=== PATIENT | female | born 1965 | race Caucasian/White ===

== ENCOUNTER → 2018-03-26 10:43 | Outpatient (REF) | payer BC, SELFPAY ==
[2018-03-26 13:19] LABS: Abs Immature Grans 0.01 k/cumm (0.0-0.09); Absolute Basophil Count 0.02 k/cumm (0.0-0.2); Absolute Lymphocyte Count 0.53 k/cumm (1.2-3.4); Absolute Monocyte Count 0.25 k/cumm (0.11-0.7); Absolute Neutrophil Count 1.77 k/cumm (1.2-6.7); Basophils % 0.7; Eosinophils % 3.7; HCT 37.5 % (36.0-46.0); HGB 12.7 g/dL (12.0-15.5); Immature Grans % 0.4; Lymphocytes % 19.8; Mean Corp. HGB Concentration 33.9 g/dL (32.0-36.0); Mean Corpuscular Hemoglobin 28.2 pg (27.0-33.0); Mean Corpuscular Volume 83.3 fL (80-95); Mean Platelet Volume 10.8 fL (8.0-11.0); Monocytes % 9.3; Neutrophils % 66.1; RBC Distribution Width 13.8 % (11.7-14.6); White Blood Cell Count 2.68 k/cumm (4.4-10.8)
[2018-03-26 13:48] LABS: Anion Gap 9.4 mmol/L (3-11); BUN 8 mg/dL (7-18); CO2 27.6 mmol/L (21.0-32.0); Calcium 8.8 mg/dL (8.5-10.1); Chloride 100 mmol/L (98-107); Glucose 306 mg/dL (70-100); Magnesium 1.5 mg/dL (1.8-2.4); Potassium 3.8 mmol/L (3.5-5.1); Sodium 137 mmol/L (136-145)
[2018-03-26 14:05] LABS: Diff Comment PLT Morph Reviewed
[2018-03-26 14:07] LABS: Platelet Count 71 x1000/uL (130-400)
== END ==
LOC: NCHCN 10:43
PROVIDERS: Visit Provider Nurse Practitioner Family
DX: D53.9 Nutritional anemia, unspecified (principal); D69.6 Thrombocytopenia, unspecified; E66.9 Obesity, unspecified; E83.42 Hypomagnesemia
CPT/HCPCS: 80048; 85027; 83735; 85007

== ENCOUNTER 2018-04-30 17:45 | Outpatient (REF) | payer BC, SELFPAY ==
[2018-04-30 21:34] LABS: Magnesium 1.3 mg/dL (1.8-2.4)
== END 2018-04-30 18:05 ==
LOC: NCHCN 17:45
PROVIDERS: Visit Provider Nurse Practitioner Family
DX: E83.42 Hypomagnesemia (principal); R60.0 Localized edema; M54.5 Low back pain; D69.6 Thrombocytopenia, unspecified; E11.319 Type 2 diabetes mellitus with unspecified diabetic retinopathy without macular edema; I25.10 Atherosclerotic heart disease of native coronary artery without angina pectoris; I10 Essential (primary) hypertension
CPT/HCPCS: 83735

== ENCOUNTER 2018-08-17 10:22 | Outpatient (REF) | payer BC, SELFPAY | END 2018-08-17 10:42 | LOC: NCHCN 10:22 | PROVIDERS: Visit Provider Nurse Practitioner Family | DX: E83.42 Hypomagnesemia (principal); I10 Essential (primary) hypertension; E78.5 Hyperlipidemia, unspecified; E11.319 Type 2 diabetes mellitus with unspecified diabetic retinopathy without macular edema | CPT/HCPCS: 83735 ==

== ENCOUNTER 2018-09-17 21:40 | Outpatient (REF) | payer BC, SELFPAY ==
[2018-09-17 22:14] LABS: CREATININE 0.67 mg/dL (0.55-1.02)
== END 2018-09-17 22:00 ==
LOC: NCHCN 21:40
PROVIDERS: Visit Provider Nurse Practitioner Family
DX: R10.2 Pelvic and perineal pain (principal); E11.319 Type 2 diabetes mellitus with unspecified diabetic retinopathy without macular edema; E66.9 Obesity, unspecified
CPT/HCPCS: 82565

== ENCOUNTER 2018-10-22 00:53 | Outpatient (CLI) | payer BC, SELFPAY ==
--- NOTE | 2018-10-22 16:25 | DI.MAMMO_ITS ---
SYMPTOM/DIAGNOSIS: SCREENING, Z12.31 MAMMOGRAMS: Mammograms were interpreted according to the usual protocol including computer analysis with CAD system, tomosynthesis and C view imaging. Comparison is made with exams from 2009 and 2013. The breasts are composed of fatty density tissue. No suspicious masses or suspicious microcalcifications are seen. There has been no significant change. IMPRESSION: Category 1, negative mammogram. Yearly screening mammography is recommended. [facility] ASSESSMENT OF FINDINGS: Negative. Category 1. Patient will receive a letter notifying them of these results. BI-RAD category A. The breasts are almost entirely fatty.
== END 2018-10-22 01:13 ==
PROVIDERS: PCP Nurse Practitioner Family; Visit Provider Nurse Practitioner Family
DX: Z12.31 Encounter for screening mammogram for malignant neoplasm of breast (principal)
CPT/HCPCS: 77063; 77067

== ENCOUNTER 2018-11-13 16:46 | Outpatient (REF) | payer BC, SELFPAY ==
[2018-11-13 22:01] LABS: Magnesium 1.7 mg/dL (1.8-2.4)
== END 2018-11-13 17:06 ==
LOC: NCHCN 16:46
PROVIDERS: PCP Nurse Practitioner Family; Visit Provider Nurse Practitioner Family
DX: E83.42 Hypomagnesemia (principal); K74.60 Unspecified cirrhosis of liver; E11.319 Type 2 diabetes mellitus with unspecified diabetic retinopathy without macular edema; E78.5 Hyperlipidemia, unspecified; I10 Essential (primary) hypertension
CPT/HCPCS: 83735

== ENCOUNTER 2019-02-05 17:17 | Outpatient (REF) | payer BC, SELFPAY ==
[2019-02-05 21:40] LABS: Absolute Basophil Count 0.02 k/cumm (0.0-0.2); Absolute Eosinophil Count 0.16 k/cumm (0.0-0.7); Absolute Lymphocyte Count 0.56 k/cumm (1.2-3.4); Absolute Monocyte Count 0.34 k/cumm (0.11-0.7); Absolute Neutrophil Count 2.04 k/cumm (1.2-6.7); Basophils % 0.6; Eosinophils % 5.1; HGB 11.3 g/dL (12.0-15.5); Lymphocytes % 17.9; Mean Corp. HGB Concentration 32.3 g/dL (32.0-36.0); Mean Corpuscular Hemoglobin 29.8 pg (27.0-33.0); Mean Corpuscular Volume 92.3 fL (80-95); Mean Platelet Volume 10.6 fL (8.0-11.0); Monocytes % 10.9; Neutrophils % 65.5; RBC 3.79 m/cumm (4.00-5.20); RBC Distribution Width 13.6 % (11.7-14.6); White Blood Cell Count 3.12 k/cumm (4.4-10.8)
[2019-02-05 21:49] LABS: Iron 41 ug/dL (50-175); Total Iron Binding Capacity 351 ug/dL (250-450); Transferrin Sat 12 % (15-50)
[2019-02-05 21:56] LABS: ALT 55 U/L (12-78); AST 35 U/L (15-37); Albumin 3.8 g/dL (3.4-5.0); Alkaline Phosphatase 63 U/L (46-116); Anion Gap 12.6 mmol/L (3-11); BUN 12 mg/dL (7-18); Bilirubin, Total 0.4 mg/dL (0.2-1.0); CO2 24.4 mmol/L (21.0-32.0); CREATININE 0.57 mg/dL (0.55-1.02); Calcium 9.7 mg/dL (8.5-10.1); Chloride 107 mmol/L (98-107); Glucose 145 mg/dL (70-100); Magnesium 1.7 mg/dL (1.8-2.4); Potassium 3.8 mmol/L (3.5-5.1); Sodium 144 mmol/L (136-145)
[2019-02-05 22:44] LABS: Ferritin 38 ng/mL (8-388)
[2019-02-05 22:45] LABS: Platelet Count 86 x1000/uL (130-400)
== END 2019-02-05 17:37 ==
LOC: NCHCN 17:17
PROVIDERS: PCP Nurse Practitioner Family; Visit Provider Nurse Practitioner Family
DX: E83.42 Hypomagnesemia (principal); K74.60 Unspecified cirrhosis of liver; E11.319 Type 2 diabetes mellitus with unspecified diabetic retinopathy without macular edema; I25.10 Atherosclerotic heart disease of native coronary artery without angina pectoris; E66.9 Obesity, unspecified
CPT/HCPCS: 80053; 82728; 83540; 83550; 83735; 85025

== ENCOUNTER 2019-02-26 15:34 | Outpatient (REF) | payer BC, SELFPAY | END 2019-02-26 15:54 | LOC: NCHCN 15:34 | PROVIDERS: PCP Nurse Practitioner Family; Visit Provider Nurse Practitioner Family | DX: Z48.89 Encounter for other specified surgical aftercare; T81.40XA Infection following a procedure, unspecified, initial encounter | CPT/HCPCS: 87077; 87070; 87186; 87205 ==

== ENCOUNTER 2019-08-19 15:26 | Outpatient (REF) | payer BC, SELFPAY ==
[2019-08-19 22:38] LABS: Abs Immature Grans 0.01 k/cumm (0.0-0.09); Absolute Basophil Count 0.02 k/cumm (0.0-0.2); Absolute Eosinophil Count 0.15 k/cumm (0.0-0.7); Absolute Lymphocyte Count 0.59 k/cumm (1.2-3.4); Absolute Neutrophil Count 2.45 k/cumm (1.2-6.7); Basophils % 0.6; Eosinophils % 4.1; HCT 37.8 % (36.0-46.0); Immature Grans % 0.3; Lymphocytes % 16.3; Mean Corp. HGB Concentration 34.4 g/dL (32.0-36.0); Mean Corpuscular Hemoglobin 30.1 pg (27.0-33.0); Mean Corpuscular Volume 87.5 fL (80-95); Mean Platelet Volume 10.8 fL (8.0-11.0); Neutrophils % 67.7; RBC 4.32 m/cumm (4.00-5.20); RBC Distribution Width 13.6 % (11.7-14.6); White Blood Cell Count 3.62 k/cumm (4.4-10.8)
[2019-08-19 22:51] LABS: Iron 107 ug/dL (50-170); Total Iron Binding Capacity 296 ug/dL (250-450); Transferrin Sat 36 % (15-50)
[2019-08-19 22:56] LABS: ALT 71 U/L (14-59); AST 36 U/L (15-37); Albumin 3.7 g/dL (3.4-5.0); Alkaline Phosphatase 66 U/L (46-116); Anion Gap 12.3 mmol/L (3-11); BUN 13 mg/dL (7-18); Bilirubin, Total 0.6 mg/dL (0.2-1.0); CO2 25.7 mmol/L (21.0-32.0); CREATININE 0.66 mg/dL (0.55-1.02); Calcium 9.5 mg/dL (8.5-10.1); Chloride 107 mmol/L (98-107); Glucose 170 mg/dL (74-106); Magnesium 1.6 mg/dL (1.8-2.4); Potassium 3.9 mmol/L (3.5-5.1); Sodium 145 mmol/L (136-145); Total Protein 7.1 g/dL (6.4-8.2)
[2019-08-19 23:10] LABS: Platelet Count 79 x1000/uL (130-400)
== END 2019-08-19 15:46 ==
LOC: NCHCN 15:26
PROVIDERS: PCP Nurse Practitioner Family; Visit Provider Nurse Practitioner Family
DX: E83.42 Hypomagnesemia (principal); D69.6 Thrombocytopenia, unspecified; D53.9 Nutritional anemia, unspecified; K74.60 Unspecified cirrhosis of liver; E11.319 Type 2 diabetes mellitus with unspecified diabetic retinopathy without macular edema; E78.5 Hyperlipidemia, unspecified; I25.10 Atherosclerotic heart disease of native coronary artery without angina pectoris; I10 Essential (primary) hypertension
CPT/HCPCS: 80053; 83540; 83550; 83735; 85025

== ENCOUNTER 2019-10-16 01:40 | Outpatient (CLI) | payer BC, SELFPAY ==
--- NOTE | 2019-10-16 | DI.US_ITS ---
EXAM: US ABDOMEN CLINICAL HISTORY: CIRRHOSIS, K74.60,THROMBOCYTOPENIA, D69.6,ANEMIA,D53.9 TECHNIQUE: Ultrasound performed using standard protocol. COMPARISON: ABD PELVIS WITH CONTRAST from 02/17/2018 FINDINGS: The liver is enlarged and shows a nodular, coarse echotexture. No focal liver lesions are seen. A s mall amount of fluid is noted around the upper portion of the liver. Stones are noted in the gallbla dder. There is no gallbladder wall thickening or biliary dilatation. The patient was tender while s ahsan over the gallbladder. The spleen is enlarged, measuring 16 cm in length. The kidneys are un remarkable. The pancreas and aorta were not seen. IMPRESSION: Cirrhotic appearing liver. Small amount of ascites. Splenomegaly. Cholelithiasis. DATA REPOSITORY:
== END 2019-10-16 02:00 ==
PROVIDERS: PCP Nurse Practitioner Family; Visit Provider Nurse Practitioner Family
DX: K74.60 Unspecified cirrhosis of liver (principal); D69.6 Thrombocytopenia, unspecified; D53.9 Nutritional anemia, unspecified; R16.1 Splenomegaly, not elsewhere classified; K80.20 Calculus of gallbladder without cholecystitis without obstruction; R18.8 Other ascites
CPT/HCPCS: 76700

== ENCOUNTER 2020-01-03 12:46 | Outpatient (REF) | payer BC, SELFPAY ==
[2020-01-03 22:12] LABS: ALT 57 U/L (14-59); AST 34 U/L (15-37); Albumin 3.9 g/dL (3.4-5.0); Alkaline Phosphatase 72 U/L (46-116); Anion Gap 10.8 mmol/L (3-11); BUN 15 mg/dL (7-18); Bilirubin, Total 0.8 mg/dL (0.2-1.0); CO2 26.2 mmol/L (21.0-32.0); CREATININE 0.77 mg/dL (0.55-1.02); Calcium 9.5 mg/dL (8.5-10.1); Chloride 103 mmol/L (98-107); Glucose 236 mg/dL (74-106); Magnesium 1.8 mg/dL (1.8-2.4); Potassium 3.9 mmol/L (3.5-5.1); Sodium 140 mmol/L (136-145); Total Protein 7.2 g/dL (6.4-8.2)
[2020-01-03 22:18] LABS: Vitamin B12 > 2000 pg/mL (193-986)
== END 2020-01-03 13:06 ==
LOC: NCHCN 12:46
PROVIDERS: PCP Nurse Practitioner Family; Visit Provider Nurse Practitioner Family
DX: Z00.00 Encounter for general adult medical examination without abnormal findings (principal); E83.42 Hypomagnesemia; E11.39 Type 2 diabetes mellitus with other diabetic ophthalmic complication; I10 Essential (primary) hypertension
CPT/HCPCS: 80053; 82607; 83735

== ENCOUNTER 2020-09-17 20:42 | Outpatient (REF) | payer BC, SELFPAY ==
[2020-09-17 20:43] LABS: Abs Immature Grans 0.01 10^3/uL (0.0-0.06); Absolute Basophil Count 0.05 10^3/uL (0.0-0.2); Absolute Eosinophil Count 0.21 10^3/uL (0.0-0.7); Absolute Lymphocyte Count 0.72 10^3/uL (1.2-3.4); Absolute Monocyte Count 0.47 10^3/uL (0.1-0.8); Absolute Neutrophil Count 2.66 10^3/uL (1.2-6.7); Basophils % 1.2; Eosinophils % 5.1; HCT 36.4 % (36.0-46.0); HGB 12.2 g/dL (11.2-15.7); Immature Grans % 0.2; Lymphocytes % 17.5; MCH 29.7 pg (27.0-33.0); MCHC 33.5 % (32.0-36.0); MCV 88.6 fL (80-95); MPV 10.1 fL (8.0-11.0); Monocytes % 11.4; Neutrophils % 64.6; Nucleated RBC 0 %; RBC 4.11 10^6/uL (3.93-5.22); RDW 13.8 % (11.7-14.6); RDW-SD 44.6 fL; WBC 4.12 10^3/uL (4.4-10.8)
[2020-09-17 20:52] LABS: ALT 54 U/L (14-59); AST 28 U/L (15-37); Albumin 3.8 g/dL (3.4-5.0); Alkaline Phosphatase 59 U/L (46-116); Anion Gap 10.2 mmol/L (3-11); BUN 17 mg/dL (7-18); Bilirubin, Total 0.6 mg/dL (0.2-1.0); CO2 24.8 mmol/L (21.0-32.0); CREATININE 0.8 mg/dL (0.55-1.02); Calcium 9.3 mg/dL (8.5-10.1); Chloride 102 mmol/L (98-107); Glucose 259 mg/dL (74-106); Iron 79 ug/dL (50-170); Magnesium 1.8 mg/dL (1.8-2.4); Potassium 3.9 mmol/L (3.5-5.1); Sodium 137 mmol/L (136-145); Total Iron Binding Capacity 360 ug/dL (250-450); Transferrin Sat 22 % (15-50)
[2020-09-17 20:54] LABS: Platelet Count 84 10^3/uL (130-400)
[2020-09-17 20:55] LABS: Diff Comment PLT Morph Reviewed
== END 2020-09-17 21:02 ==
LOC: NCHCN 20:42
PROVIDERS: PCP Nurse Practitioner Family; Visit Provider Nurse Practitioner Family
DX: E83.42 Hypomagnesemia (principal); R60.0 Localized edema; E11.319 Type 2 diabetes mellitus with unspecified diabetic retinopathy without macular edema; K74.60 Unspecified cirrhosis of liver; D53.9 Nutritional anemia, unspecified; G47.00 Insomnia, unspecified; D69.6 Thrombocytopenia, unspecified; M54.5 Low back pain
CPT/HCPCS: 80053; 83540; 83550; 83735; 85025

== ENCOUNTER 2021-07-27 19:03 | Outpatient (REF) | payer BC, SELFPAY ==
[2021-07-27 21:38] LABS: Abs Immature Grans 0.01 10^3/uL (0.0-0.06); Absolute Basophil Count 0.03 10^3/uL (0.0-0.2); Absolute Eosinophil Count 0.17 10^3/uL (0.0-0.7); Absolute Lymphocyte Count 0.78 10^3/uL (1.2-3.4); Absolute Monocyte Count 0.46 10^3/uL (0.1-0.8); Absolute Neutrophil Count 2.32 10^3/uL (1.2-6.7); Basophils % 0.8; Eosinophils % 4.5; HGB 12.1 g/dL (11.2-15.7); Immature Grans % 0.3; Lymphocytes % 20.7; MCH 28.9 pg (27.0-33.0); MCHC 32.7 % (32.0-36.0); MCV 88.5 fL (80-95); Monocytes % 12.2; Neutrophils % 61.5; Nucleated RBC 0 %; RBC 4.18 10^6/uL (3.93-5.22); WBC 3.77 10^3/uL (4.4-10.8)
[2021-07-27 21:47] LABS: Iron 58 ug/dL (50-170); Total Iron Binding Capacity 365 ug/dL (250-450); Transferrin Sat 16 % (15-50)
[2021-07-27 22:10] LABS: Platelet Count 79 10^3/uL (130-400)
[2021-07-27 22:22] LABS: ALT 52 U/L (14-59); AST 32 U/L (15-37); Albumin 3.9 g/dL (3.4-5.0); Alkaline Phosphatase 54 U/L (46-116); Anion Gap 7.1 mmol/L (3-11); BUN 21 mg/dL (7-18); Bilirubin, Total 0.6 mg/dL (0.2-1.0); CO2 29.9 mmol/L (21.0-32.0); CREATININE 0.7 mg/dL (0.55-1.02); Calcium 9.8 mg/dL (8.5-10.1); Chloride 105 mmol/L (98-107); Ferritin 45 ng/mL (8-252); Glucose 139 mg/dL (74-106); Magnesium 1.9 mg/dL (1.8-2.4); Potassium 4.5 mmol/L (3.5-5.1); Sodium 142 mmol/L (136-145); Total Protein 7.3 g/dL (6.4-8.2); Vitamin B12 1917 pg/mL (193-986)
[2021-07-29 01:43] LABS: Vitamin D 25 Total 44.2 ng/mL (30-100)
== END 2021-07-27 19:04 | disposition home or self-care (01) ==
LOC: NCHCN 19:03
PROVIDERS: PCP Nurse Practitioner Family; Visit Provider Nurse Practitioner Family
DX: D69.6 Thrombocytopenia, unspecified (principal); G47.00 Insomnia, unspecified; E11.319 Type 2 diabetes mellitus with unspecified diabetic retinopathy without macular edema; K74.60 Unspecified cirrhosis of liver; D53.9 Nutritional anemia, unspecified; I10 Essential (primary) hypertension
CPT/HCPCS: 80053; 82306; 82607; 82728; 83540; 83550; 83735; 85025

== ENCOUNTER 2021-09-03 02:47 | Outpatient (CLI) | payer BC, SELFPAY ==
--- NOTE | 2021-09-03 15:58 | DI.MAMMO_ITS ---
Exam(s) MAMMO SCREENING EXAM: MAMMO SCREENING CLINICAL HISTORY: SCREENING, Z12.39. TECHNIQUE: Bilateral full field digital CC and MLO mammographic images were obtained with 3D tomosyn thesis and utilizing computer aided detection (CAD). COMPARISON: Prior mammograms dating back to 2013, the most recent being October 2018. FINDINGS: There are no new spiculated masses nor malignant appearing microcalcification groups. There is no significant architectural distortion nor skin thickening-retraction. IMPRESSION: No radiographic evidence of malignancy. BI-RADS Category 1 - Negative Breast Density - Category B - Scattered areas of fibroglandular density Breast density Category C or D implies that the patient has dense breast tissue. Dense breast tissue can make it harder to find cancer on a mammogram. Dense breast tissue is also associated with an incr eased risk of breast cancer. This information about the result of the mammogram report was provided to the patient to raise their awareness. Use this report when you speak with the patient about their risks for breast cancer, which includes their family history. At that time, you may recommend additional screening tests (Ultrasoun d or MRI) as these tests may add significant information. A negative radiographic report should not delay biopsy if a dominant or clinically suspicious mass is present. Up to ten percent of cancers are not identified on mammography. A negative report may reinforce clinical impression. Adenosis and dense breasts may obscure an underlying neoplasm. False positive reports average 6 to 10%. Patient will receive a letter notifying them of these results.
== END 2021-09-03 03:07 ==
PROVIDERS: PCP Nurse Practitioner Family; Visit Provider Nurse Practitioner Family
DX: Z12.31 Encounter for screening mammogram for malignant neoplasm of breast (principal)
CPT/HCPCS: 77063; 77067

== ENCOUNTER 2022-03-22 15:07 | Outpatient (REF) | payer BC, SELFPAY ==
[2022-03-22 15:03] LABS: HCT 35.2 % (36.0-46.0); HGB 11.5 g/dL (11.2-15.7); MCH 28.9 pg (27.0-33.0); MCHC 32.7 % (32.0-36.0); MCV 88 fL (80-95); MPV 10.7 fL (8.0-11.0); Platelet Count 70 10^3/uL (130-400); RBC 3.98 10^6/uL (3.93-5.22); RDW 13.9 % (11.7-14.6); RDW-SD 45.2 fL; WBC 3.36 10^3/uL (4.4-10.8)
[2022-03-22 15:06] LABS: Iron 55 ug/dL (50-170); Total Iron Binding Capacity 385 ug/dL (250-450); Transferrin Sat 14 % (15-50)
[2022-03-22 15:08] LABS: Calculated LDL 72 mg/dL (<100); Cholesterol 138 mg/dL (<200); HDL Cholesterol 47 mg/dL (40-60); Triglyceride 95 mg/dL (<150)
== END 2022-03-22 15:08 | disposition home or self-care (01) ==
LOC: NCHCN 15:07
PROVIDERS: PCP Nurse Practitioner Family; Visit Provider Nurse Practitioner Family
DX: K74.60 Unspecified cirrhosis of liver (principal); E78.5 Hyperlipidemia, unspecified
CPT/HCPCS: 80061; 85027; 83540; 83550

== ENCOUNTER → 2022-03-31 00:16 | Outpatient (CLI) | payer BC, SELFPAY ==
--- NOTE | 2022-03-31 08:00 | ETT_ITS ---
APPROVED REPORT Exam: Exercise Treadmill Patient Location: Out-Patient Room/Bed: Stress Nurse: Lashaun Toro RN Ordering Provider:SHAJI SALEH, Contact Number: BMI: 36.63 Baseline Rhythm: Sinus Rhythm Indications: Chest pain. Medical History Medical History: DM II with retinopathy. CAD. HLD. HTN.Obesity. Heart murmur. Former smoker. Hypomagn esemia. Anemia. Cirrhosis. Cardiac Medications: Lisinopril. Atorvastatin. Nadolol. Metformin. Glargine insulin. Aspirin. Sitagli ptin. Magnesium. Nitro SL. Allergies: No known drug allergies Cardiac Risk Factors: Family hx. CVD. HTN. Diabetes. Former smoker. HLD. Obesity. Previous Cardiac Procedures: Cardiac stents (2 stents in 2005) (2 stents in 2007) Pretest Chest Pain Characteristics: None. Exercise History: Sedentary Physical Disabilities: None Lung Sounds: Clear to auscultation Heart Sounds: Murmur, Regular Stress Test Details Test: Exercise stress testing was performed using a Kevin protocol. Rest Stress HR Resting HR Supine: 72 bpm Max Heart Rate (APMHR): 166 bpm Resting HR Standin bpm Target HR (85% APMHR): 141 bpm Max HR Achieved: 143 bpm % of APMHR: 86 Recovery HR: 78 bpm HR response to stress: Normal HR response to stress BP Resting BP Supine: 104/52 mmHg Resting BP Standin/52 mmHg Max BP: 170/54 mmHg Recovery BP: 138/58 mmHg BP response to stress: Normal blood pressure response to stress. ECG Resting ECG: Sinus Rhythm Ectopy: None Stress ECG: Sinus Tachycardia ST Change: No significant ST segment changes noted Arrhythmia: VPC's Recovery ECG: Sinus Rhythm Lead(s): II, III, aVF, V3,V4,V5,V6 Recovery ST Deviation: Recovery stage 2 mm Recovery Arrhythmia: None Comment: Downsloping ST depression 1 minute post exercise, returned to baseline by 6 minutes recovery time Clinical Reason for Termination: Dyspnea Stress Symptoms: Chest pain, Dyspnea Exercise duration: 6 min31 sec Highest Stage Reached: Stage 3: 3.4 mph at 14% grade. Exercise capacity: 7.83 METs Scale: Sedentary Angina Score: Non-Limiting Rate Pressure Product: [id number] Stress ECG Conclusion 1. Resting electrocardiogram was within normal limits 2. Patient exercised on the Kevin protocol and completed a workload of 7.83 METS 3. Normal heart rate and blood pressure response to exercise. The patient achieved 86% of predicted heart rate for age 4. At peak exercise there was approximately [address] depression in the inferior and anterolate ral leads. During recovery the ST segments became downsloping 5. There were no significant dysrhythmias 6. Electrocardiographically the test was consistent with myocardial ischemia. Suggest repeat with im aging if clinically indicated Stress Test Summary STAGE Time (mins) Speed (mph) Grade (%) HR BP SpO2 SYMPTOMS METS Supine 72 104/52 Standing 82 122/52 1 3 1.7 10 113 126/54 Mild SOB 4.5 2 6 2.5 12 135 152/52 95 Mod SOB with 2 out of 10 chest tightness 7 3 9 3.4 14 141 10 1 min recovery 111 158/56 2/10 chest tightness 3 min recovery 88 170/54 96 Symptoms subsided. 6 min recovery 78 138/58
== END ==
PROVIDERS: PCP Nurse Practitioner Family; Visit Provider Nurse Practitioner Family
DX: R07.9 Chest pain, unspecified (principal)
CPT/HCPCS: 93017

== ENCOUNTER 2022-06-07 02:30 | Outpatient (CLI) | payer BC, SELFPAY ==
--- NOTE | 2022-06-07 09:15 | DI.NM_ITS ---
APPROVED REPORT Exam: Exercise Treadmill Patient Location: Out-Patient Room/Bed: Stress Nurse: Viv Ramirez RN Ordering Provider:SHAJI SALEH, Contact Number: [phone] BMI: 36.63 Baseline Rhythm: Sinus Rhythm Comment: T wave abnormality III and V3 Indications: Abnormal Stress EKG Medical History Medical History: HTN, anemia, obesity, CAD, DM II w/ retinopathy, thrombocytopenia, +murmur, former s moker, HLD, obesity Cardiac Medications: Nitro, Metformin, Magnesium Chloride, Lisinopril, Sitagliptin, Insulin glargine, empaglifozin, atorvastatin, ASA, Nadolol Allergies: NKA Cardiac Risk Factors: +family history, HTN, HLD, CVD, DM, former smoker, obesity Previous Cardiac Procedures: Stents in 2005 and 2007 Pretest Chest Pain Characteristics: None Exercise History: Sedentary Physical Disabilities: None Lung Sounds: LCTA Heart Sounds: regular, +murmur Stress Test Details Test: Exercise stress testing was performed using a Kevin protocol. Nuclear Acquisition: Rest Tc-99m/Stress Tc-99m 1 day Rest Isotope: Tc-99m Sestamibi. Dose: 11.5 ml Date: 06/07/2022 Injection Time: 09:30 Stress Isotope: Tc-99m Sestamibi. Dose: 32 ml Date: 06/07/2022 Injection Time: 11:12 HR Resting HR Supine: 68 bpm Max Heart Rate (APMHR): 166.311888 bpm Resting HR Standin bpm Target HR (85% APMHR): 141.416755 bpm Max HR Achieved: 162 bpm % of APMHR: 97.59 Recovery HR: 76 bpm HR response to stress: Normal HR response to stress BP Resting BP Supine: 124/50 mmHg Resting BP Standin/52 mmHg Max BP: 152/60 mmHg Recovery BP: 122/52 mmHg BP response to stress: Normal blood pressure response to stress. ECG Resting ECG: Sinus Rhythm Ectopy: None Comment: T wave abnormalities III and V3 Stress ECG: Sinus Rhythm, Sinus Tachycardia ST Change: Horizontal ST depression Lead(s): II, III, aVF, V4, V5, V6 Stage: [address] Deviation: 0.5-1 mm Arrhythmia: Rare PVC and PAC Comment: T wave inversions II, III, aVF, V4, V5, V6 Recovery ECG: Sinus Rhythm Recovery ST Change: Downsloping ST depression Lead(s): II, III, aVF, V3, V4, V5, V6 Recovery ST Deviation: 2 mm Comment: T wave abnormalities maintained in III, aVLV3, V4, and V5. ST changes resolved by 6 1/2 aj jorge of recovery but T wave abnormalities remained. Clinical Reason for Termination: Fatigue, Dyspnea, Chest pain/Anginal equivalent Stress Symptoms: Dyspnea, Chest pain Exercise duration: 5 min49 sec Highest Stage Reached: Stage 2: 2.5 mph at 12% grade. Exercise capacity: 7.05 METs Angina Score: Non-Limiting Borien Treadmill Score: -0.5 Rate Pressure Product: [id number] Stress ECG Conclusion 1. Resting electrocardiogram was within normal limits 2. Patient exercised on the Kevin protocol and completed a workload of 7.05 METS 3. Normal heart rate and blood pressure response to exercise. The patient achieved 97% of predicted heart rate for age 4. The electrocardiographic portion of the test was consistent with myocardial ischemia with [address] depression noted in the inferior and anterolateral leads. In recovery downsloping ST is persisted through minute 6 5. There were no significant dysrhythmias 6. See MPI report Obrien Treadmill Score is -0.5 which is Moderate risk. Stress Test Summary STAGE Time (mins) Speed (mph) Grade (%) HR BP SpO2 SYMPTOMS METS Supine 68 124/50 Standing 74 120/52 1 3 1.7 10 122 140/50 4.5 2 6 2.5 12 156 144/58 chest pain 6/10, shortness of breath 7 1 min recovery 106 152/60 shortness of breath, flutters 3 min recovery 86 152/54 6 min recovery 77 122/52 9 min recovery 76 Patient exercised for a total of 5 min. 49 seconda, at the 5 minute domi she reported chest pain 6/10 and shortness of breath. Patient requesting to stop at 5:49 seconds more due to her shortness of carols ath per patient. She reported her chest pain began to dissipate as soon as she stopped exercising and resolved completely. She had shortness of breath and flutters in her chest that resolved within a few minutes of recovery. MPI Conclusion There is minimal apical ischemia versus apical thinning There is no evidence of prior myocardial infarction EF is 58% with normal wall motion Radiologist Interpretation Radiologist agrees with Chain Saw Mechanic's Interpretation. Radiologist Interpretation by: Noman Sanchez MD Interpretation Date/Time: 06/09/2022 08:43:28
== END 2022-06-07 02:50 ==
LOC: DI 02:31
PROVIDERS: PCP Nurse Practitioner Family; Visit Provider Nurse Practitioner Family
DX: R94.31 Abnormal electrocardiogram [ECG] [EKG] (principal); I25.89 Other forms of chronic ischemic heart disease; I10 Essential (primary) hypertension; E11.9 Type 2 diabetes mellitus without complications
CPT/HCPCS: 78452; 93017

== ENCOUNTER 2022-07-19 08:57 | Outpatient (CLI) | payer BC, SELFPAY ==
--- NOTE | 2022-07-19 08:45 | RT.EKG_ITS ---
APPROVED REPORT Exam: Resting ECG Reason for Exam: CAD Patient Location: O HR:74 bpm ECG Measurements Heart Rate 74 AXIS AR 140 P 32 QRSd 102 QRS 45 QT 375 T 11 QTc 416 Conclusion Sinus rhythm...normal P axis, V-rate 50- 99 Baseline wander in lead(s) II,aVF,V2,V3 Normal Electrocardiogram
== END 2022-07-19 08:58 | disposition home or self-care (01) ==
LOC: DI.CARD 08:57
PROVIDERS: PCP Nurse Practitioner Family; Visit Provider Internal Medicine Cardiovascular Disease
DX: I25.10 Atherosclerotic heart disease of native coronary artery without angina pectoris (principal)
CPT/HCPCS: 93010

== ENCOUNTER 2022-07-22 12:47 | Outpatient (REF) | payer BC, SELFPAY ==
[2022-07-22 14:43] LABS: HCT 32.8 % (36.0-46.0); HGB 10.8 g/dL (11.2-15.7); MCH 29.8 pg (27.0-33.0); MCHC 32.9 % (32.0-36.0); MCV 91 fL (80-95); MPV 10.7 fL (8.0-11.0); RBC 3.62 10^6/uL (3.93-5.22); RDW 13.3 % (11.7-14.6); WBC 5.04 10^3/uL (4.4-10.8)
[2022-07-22 14:49] LABS: INR 1.1 (0.9-1.1); Prothrombin Time 10.7 sec (9.3-11.0)
[2022-07-22 14:53] LABS: Anion Gap 6.3 mmol/L (3-11); BUN 15 mg/dL (7-18); CO2 29.7 mmol/L (21.0-32.0); CREATININE 0.7 mg/dL (0.55-1.02); Calcium 9.5 mg/dL (8.5-10.1); Chloride 104 mmol/L (98-107); Estimated GFR 102.07 (mL/min/1.73m2); Glucose 206 mg/dL (74-106); Potassium 4.6 mmol/L (3.5-5.1); Sodium 140 mmol/L (136-145)
[2022-07-22 15:34] LABS: Platelet Count 83 10^3/uL (130-400)
== END 2022-07-22 12:48 | disposition home or self-care (01) ==
LOC: NCHCN 12:47
PROVIDERS: PCP Nurse Practitioner Family; Visit Provider Nurse Practitioner Family
DX: I25.10 Atherosclerotic heart disease of native coronary artery without angina pectoris (principal)
CPT/HCPCS: 80048; 85027; 85610; 85730

== ENCOUNTER 2022-08-02 02:44 | Outpatient (CLI) | payer BC, SELFPAY ==
[2022-08-02 16:31] LABS: Vitamin D 25 Total 36.5 ng/mL (30-100)
[2022-08-02 16:34] LABS: ALT 41 U/L (14-59); AST 32 U/L (15-37); Albumin 3.5 g/dL (3.4-5.0); Alkaline Phosphatase 53 U/L (46-116); Anion Gap 10.1 mmol/L (3-11); BUN 16 mg/dL (7-18); Bilirubin, Total 0.5 mg/dL (0.2-1.0); CO2 25.9 mmol/L (21.0-32.0); CREATININE 0.7 mg/dL (0.55-1.02); Calcium 9.2 mg/dL (8.5-10.1); Chloride 104 mmol/L (98-107); Estimated GFR 102.07 (mL/min/1.73m2); Glucose 154 mg/dL (74-106); Magnesium 1.8 mg/dL (1.8-2.4); Potassium 3.8 mmol/L (3.5-5.1); Sodium 140 mmol/L (136-145); TSH (W/Ref FT4) 1.05 uIU/mL (0.36-3.74); Total Protein 6.7 g/dL (6.4-8.2); Vitamin B12 894 pg/mL (193-986)
[2022-08-02 16:35] LABS: Folate > 20.0 ng/mL (8.6-20.0)
[2022-08-02 22:42] LABS: Parathyroid Hormone,Intact 26 pg/mL (19-88)
[2022-08-05 14:08] LABS: Thiamine (Vitamin B1), WB 111 nmol/L (70-180)
== END 2022-08-02 02:45 | disposition home or self-care (01) ==
LOC: LBO 02:44
PROVIDERS: PCP Nurse Practitioner Family; Visit Provider Nurse Practitioner Family
DX: I10 Essential (primary) hypertension (principal); K30 Functional dyspepsia; R07.9 Chest pain, unspecified; E78.5 Hyperlipidemia, unspecified; E11.319 Type 2 diabetes mellitus with unspecified diabetic retinopathy without macular edema; D69.6 Thrombocytopenia, unspecified; K74.60 Unspecified cirrhosis of liver; Z98.84 Bariatric surgery status
CPT/HCPCS: 36415; 80048; 80053; 82306; 85027; 82607; 82746; 83735; 83970; 84425; 84443; 85610; 85730

== ENCOUNTER 2023-02-13 17:39 | Outpatient (REF) | payer BC, SELFPAY ==
[2023-02-13 18:16] LABS: Abs Immature Grans 0.03 10^3/uL (0.0-0.06); Absolute Basophil Count 0.02 10^3/uL (0.0-0.2); Absolute Eosinophil Count 0.12 10^3/uL (0.0-0.7); Absolute Lymphocyte Count 0.43 10^3/uL (1.2-3.4); Absolute Monocyte Count 0.39 10^3/uL (0.1-0.8); Absolute Neutrophil Count 1.75 10^3/uL (1.2-6.7); Basophils % 0.7; Eosinophils % 4.4; HCT 32.6 % (36.0-46.0); HGB 10.3 g/dL (11.2-15.7); Immature Grans % 1.1; Lymphocytes % 15.7; MCH 27.8 pg (27.0-33.0); MCHC 31.6 % (32.0-36.0); MCV 88 fL (80-95); Monocytes % 14.2; Neutrophils % 63.9; RDW 14.6 % (11.7-14.6); RDW-SD 46.8 fL; WBC 2.74 10^3/uL (4.4-10.8)
[2023-02-13 18:49] LABS: Diff Comment Diff Reviewed; Platelet Count 66 10^3/uL (130-400); RBC Morphology Normal
== END 2023-02-13 17:40 | disposition home or self-care (01) ==
LOC: NCHCN 17:39
PROVIDERS: PCP Nurse Practitioner Family; Visit Provider Nurse Practitioner Family
DX: E11.319 Type 2 diabetes mellitus with unspecified diabetic retinopathy without macular edema (principal); D69.6 Thrombocytopenia, unspecified
CPT/HCPCS: 85025

== ENCOUNTER 2023-05-12 21:11 | Outpatient (REF) | payer BC, SELFPAY ==
[2023-05-12 21:39] LABS: Abs Immature Grans 0.01 10^3/uL (0.0-0.06); Absolute Basophil Count 0.04 10^3/uL (0.0-0.2); Absolute Eosinophil Count 0.21 10^3/uL (0.0-0.7); Absolute Monocyte Count 0.44 10^3/uL (0.1-0.8); Absolute Neutrophil Count 2.24 10^3/uL (1.2-6.7); Basophils % 1.1; Eosinophils % 5.9; HCT 34.2 % (36.0-46.0); HGB 11.2 g/dL (11.2-15.7); Immature Grans % 0.3; Lymphocytes % 16.9; MCH 28.8 pg (27.0-33.0); MCHC 32.7 % (32.0-36.0); MCV 88 fL (80-95); Monocytes % 12.4; Neutrophils % 63.4; RBC 3.89 10^6/uL (3.93-5.22); RDW 15.1 % (11.7-14.6); RDW-SD 47.8 fL; WBC 3.54 10^3/uL (4.4-10.8)
[2023-05-12 21:40] LABS: Platelet Count 82 10^3/uL (130-400)
[2023-05-12 22:47] LABS: Iron 51 ug/dL (50-170); Total Iron Binding Capacity 378 ug/dL (250-450); Transferrin Sat 13 % (15-50)
[2023-05-12 23:04] LABS: Vitamin D 25 Total 34.8 ng/mL (30-100)
[2023-05-12 23:05] LABS: ALT 43 U/L (14-59); AST 31 U/L (15-37); Albumin 3.9 g/dL (3.4-5.0); Alkaline Phosphatase 57 U/L (46-116); Anion Gap 12.1 mmol/L (3-11); BUN 14 mg/dL (7-18); Bilirubin, Total 0.6 mg/dL (0.2-1.0); CO2 23.9 mmol/L (21.0-32.0); CREATININE 0.7 mg/dL (0.55-1.02); Chloride 103 mmol/L (98-107); Estimated GFR 102.07 (mL/min/1.73m2); Ferritin 26 ng/mL (8-252); Glucose 141 mg/dL (74-106); Potassium 3.6 mmol/L (3.5-5.1); Sodium 139 mmol/L (136-145); Total Protein 7.4 g/dL (6.4-8.2); Vitamin B12 1852 pg/mL (193-986)
[2023-05-15 09:19] LABS: Parathyroid Hormone,Intact 15 pg/mL (19-88)
[2023-05-19 15:18] LABS: Thiamine (Vitamin B1), WB 109 nmol/L (70-180)
== END 2023-05-12 21:12 | disposition home or self-care (01) ==
LOC: NCHCN 21:11
PROVIDERS: PCP Nurse Practitioner Family; Visit Provider Nurse Practitioner Family
DX: R07.89 Other chest pain (principal); K30 Functional dyspepsia; E78.5 Hyperlipidemia, unspecified; E11.319 Type 2 diabetes mellitus with unspecified diabetic retinopathy without macular edema; I10 Essential (primary) hypertension; Z98.84 Bariatric surgery status; D53.9 Nutritional anemia, unspecified; K74.60 Unspecified cirrhosis of liver
CPT/HCPCS: 80053; 82306; 82607; 82728; 83540; 83550; 83970; 84425; 85025

== ENCOUNTER 2023-06-15 14:24 | Outpatient (CLI) | payer BC, SELFPAY ==
--- NOTE | 2023-06-15 14:15 | RT.EKG_ITS ---
APPROVED REPORT Exam: Resting ECG Reason for Exam: Patient Location: O HR:66 bpm ECG Measurements Heart Rate 66 AXIS AZ 158 P 4 QRSd 105 QRS 26 QT 390 T 15 QTc 409 Conclusion Sinus rhythm...normal P axis, V-rate 50- 99 Borderline T abnormalities, inferior leads...T flat/neg, II III aVF
== END 2023-06-15 14:25 | disposition home or self-care (01) ==
LOC: DI.CARD 14:25
PROVIDERS: PCP Nurse Practitioner Family; Visit Provider Internal Medicine Cardiovascular Disease
DX: R07.9 Chest pain, unspecified (principal)
CPT/HCPCS: 93010

== ENCOUNTER 2023-06-15 15:44 | Outpatient (CLI) | payer BC, SELFPAY ==
[2023-06-15 15:26] LABS: HCT 32.4 % (36.0-46.0); HGB 10.5 g/dL (11.2-15.7); MCH 29.2 pg (27.0-33.0); MCHC 32.4 % (32.0-36.0); MCV 90 fL (80-95); MPV 9.8 fL (8.0-11.0); RDW 14.1 % (11.7-14.6); WBC 3.62 10^3/uL (4.4-10.8)
[2023-06-15 15:38] LABS: INR 1.2 (0.9-1.1); Prothrombin Time 11.5 sec (9.1-11.1)
[2023-06-15 15:50] LABS: Platelet Count 80 10^3/uL (130-400)
[2023-06-15 16:11] LABS: Anion Gap 8.8 mmol/L (3-11); BUN 15 mg/dL (7-18); CO2 24.2 mmol/L (21.0-32.0); CREATININE 0.7 mg/dL (0.55-1.02); Calcium 9.9 mg/dL (8.5-10.1); Chloride 104 mmol/L (98-107); Estimated GFR 101.44 (mL/min/1.73m2); Glucose 147 mg/dL (74-106); Sodium 137 mmol/L (136-145)
== END 2023-06-15 15:45 | disposition home or self-care (01) ==
LOC: LBO 15:44
PROVIDERS: PCP Nurse Practitioner Family; Visit Provider Internal Medicine Cardiovascular Disease
DX: I25.10 Atherosclerotic heart disease of native coronary artery without angina pectoris (principal)
CPT/HCPCS: 36415; 80048; 85027; 85610; 85730

== ENCOUNTER 2023-07-26 21:27 | Observation (INO) | payer BC, SELFPAY ==
[2023-07-26] VITALS (48 sets, daily range): BP systolic 86–193; BP diastolic 44–146; PULSE 61–191; RESP 14–29; TEMP 35.9; O2SAT 94–99
--- NOTE | 2023-07-26 21:15 | RT.EKG_ITS ---
APPROVED REPORT Exam: Resting ECG Reason for Exam: Rapid Afib Patient Location: E HR:193 bpm ECG Measurements Heart Rate 193 AXIS CA 150 P -54 QRSd 76 QRS 52 QT 239 T 254 QTc 428 Conclusion Supraventricular tachycardia...V-rate>(220-age), QRSd<120 Nonspecific T abnormalities, inferior leads...T <-0.10mV, II III aVF Afib w RVR Normal axis Rate related ST changes No STEMI
[2023-07-26] MEDS: dilTIAZem 25 MG/5 ML VIAL 20 MG IVP (21:36)
--- NOTE | 2023-07-26 21:44 | W.ED.GENAD ---
Discharge Plan Disposition Patient Disposition: Admit to [facility] Discharge Details Clinical Impression: Atrial fibrillation with RVR Primary Care Provider: Cydney Yin ED Provider: El Downs [place] Meds and New Rx's Prescriptions: No Action clotrimazole-betamethasone [Lotrisone] 1-0.05 % cream 1 applic TP BID 10 Days Qty: 15 2RF Jardiance 25 mg tablet 25 mg PO DAILY clopidogrel 75 mg tablet 75 mg PO DAILY Hold Instructions: Changed by Provider Patient Comments: 03/17/23 PTCA stent to [place] [facility] [place] nadolol 20 mg tablet 20 mg PO DAILY ferrous sulfate [FerrouSul] 325 mg (65 mg iron) tablet 325 mg PO DAILY Januvia 100 mg tablet 100 mg PO DAILY magnesium chloride 64 mg tablet,delayed release (DR/EC) 64 mg PO DAILY nitroglycerin [Nitrostat] 0.4 mg tablet, sublingual 0.4 mg sublingual Q5M PRN Rx Instructions: do not exceed 3 doses per episode mecobalamin (vitamin B12) 1,000 mcg tablet,chewable 1,000 mcg PO DAILY insulin glargine [Lantus Solostar U-100 Insulin] 100 unit/mL (3 mL) insulin pen 60 unit subcut QPM multivitamin [Daily Multi-Vitamin] 1 EACH tablet 1 tab PO BID Patient Comments: 02/17 18 multi vit with mineral aspirin [Aspir-81] 81 MG tablet,delayed release (DR/EC) 81 mg PO DAILY AM calcium citrate-vitamin D3 [Calcitrate-Vitamin D] 1 EACH tablet 1 tab PO BID Patient Comments: 02/17/18 calciom citrate vit D 600 mg / 400 mg tab Intrinsi S12-Sfobeh 1 EACH tablet 500 mcg PO DAILY AM Patient Comments: 02/17 vit b12 500 mcg tab daily atorvastatin 40 MG tablet 40 mg PO HS metformin [Glucophage XR] 500 MG tablet extended release 24 hr 1,000 mg PO BID Medical Decision Making Patient presenting to ED in rapid A-fib with rates as high as 200. She has had no chest pain or pressure, shortness of breath, vomiting, fever. Symptoms began approximately 90 minutes prior to calling EMS. She is given 20 mg Cardizem bolus and is written for a 5 mg/h drip. We will also give 500 mL bolus of LR. CBC, BMP, magnesium sent. Urinalysis ordered. Her EKG shows rapid A-fib with normal axis and rate related ST changes. Patient's white count is normal. She does have mild anemia with a hemoglobin of 10. Chemistries unremarkable other than a magnesium of 1.7. We will give 2 g of magnesium IV. Call has been placed to [facility]. Spoke with cardiology at [facility]. Recommends to continue Cardizem for rate control. We will start heparin without a bolus for anticoagulation. They would like to have patient transferred to [facility] tomorrow when bed available so that she may get an echo and cardioversion if needed. Patient to be n.p.o. after midnight. Discussed with hospitalist. Patient to be admitted to ICU here pending transfer to [facility] tomorrow. Patient has now converted to atrial flutter with 2 to 1 block with a rate in the 130s. Her EKG shows resolution of rate related ST changes. Medical Records Medical records reviewed: Yes I reviewed the patient's medical records. Lab Data Lab results reviewed: Yes I reviewed the patient's lab results. ECG Data Attestation: I personally reviewed and interpreted this ECG (s) as follows: Prior ECG tracings: available for review Interpretation: see EKG HPI General Mode of arrival: EMS. Date/Time Provider Initiated Documentation: 07/26/23 21:31. Limitations to Documentation: no limitations. Information obtained by: patient and old records reviewed. HPI Narrative: Patient presents to ED with onset of rapid heart rate/palpitations at about 8 PM. She denies any chest pain other than her postoperative sternal pain. She underwent one-vessel CABG 10 days ago. She denies any fever, cough, shortness of breath, abdominal pain, vomiting, back pain, leg pain or leg swelling. She reports no postoperative complications after the surgery. She has a remote history of A-fib but currently is not on anticoagulation. She is on nadolol and does have a history of cirrhosis. Related Data Home Medications Medication Instructions Recorded Confirmed aspirin 81 mg tablet,delayed 81 mg PO DAILY AM 02/17/18 07/26/23 release (Aspir-) atorvastatin 40 mg tablet 40 mg PO HS 02/17/18 07/26/23 calcium citrate 315 mg 1 tab PO BID 02/17/18 07/26/23 calcium-vitamin D3 6.25 mcg (250 unit) tablet (Calcitrate) metformin 500 mg tablet,extended 1,000 mg PO BID 02/17/18 07/26/23 release 24 hr (Glucophage XR) multivitamin (Daily Multi-Vitamin 1 tab PO BID 02/17/18 07/26/23 tablet) vit [id number]-[id number] factor-folic 500 mcg PO DAILY AM 02/17/18 07/26/23 acid cmb#2 500 mcg-20 mg-800 mcg tablet (Intrinsi Y50-Sinbye) clotrimazole-betamethasone 1 1 applic topical BID 10 days #15 06/07/19 06/15/23 %-0.05 % topical cream (Lotrisone) grams empagliflozin 25 mg tablet 25 mg PO DAILY 06/19/19 07/26/23 (Jardiance) ferrous sulfate 325 mg (65 mg 325 mg PO DAILY 04/04/22 07/26/23 iron) tablet (FerrouSul) magnesium chloride 64 mg 64 mg PO DAILY 04/04/22 07/26/23 (magnesium chloride) tablet,delayed release mecobalamin (vitamin B12) 1,000 1,000 mcg PO DAILY 04/04/22 07/26/23 mcg chewable tablet nitroglycerin 0.4 mg sublingual 0.4 mg sublingual Q5M PRN 04/04/22 07/26/23 tablet (Nitrostat) sitagliptin phosphate 100 mg 100 mg PO DAILY 04/04/22 07/26/23 tablet (Januvia) clopidogrel 75 mg tablet 75 mg PO DAILY 03/17/23 07/26/23 insulin glargine 100 unit/mL (3 60 unit subcut QPM 03/20/23 07/26/23 mL) subcutaneous pen (Lantus Solostar U-100 Insulin) nadolol 20 mg tablet 20 mg PO DAILY 06/15/23 07/26/23 Previous Rx's Medication Instructions Recorded clotrimazole-betamethasone 1 1 applic topical BID 10 days #15 06/07/19 %-0.05 % topical cream (Lotrisone) grams Allergies Allergy/AdvReac Type Severity Reaction Status Date / Time No Known Allergies Allergy Verified 07/26/23 21:30 General Stated Complaint: Arrhythmia RYAN: 2 Review of Systems Narrative: Per HPI PFSH All Active Problems (Updated 07/26/23 @ 23:28 by El Downs MD) Atrial fibrillation with RVR (Acute) Afib (Chronic) Chest pain (Acute) Pre-procedural cardiovascular examination (Acute) Anemia (Chronic) Vaginal irritation (Acute) Obesity (Chronic) Medical History Atrial fibrillation and flutter Hypertension CAD (coronary artery disease) stent x2 2005, [place] [facility] [place] Thrombocytopenia Cirrhosis Surgical History S/P CABG (coronary artery bypass graft) S/P hernia repair S/P abdominoplasty S/P laparoscopic sleeve gastrectomy [facility] [place] History of esophagogastroduodenoscopy (EGD) (~02/07/14) [facility] normal esophagus, chronic gastritis, normal duodenum Family History Father Lung disease Mother Diabetes Heart disease Sister Heart disease Social History Smoking/Tobacco Use Status: Former Tobacco Use Smoking risk assessment performed?: Yes Alcohol Intake: former Drug use: Never Housing: house Seatbelt use: always Do you feel safe at home: Yes Do you feel safe in your relationship?: Yes Exam Narrative Exam Narrative: Const: Overweight female in NAD. HEENT: NC/AT. Normal facial exam. Eyes: Normal conjunctiva and sclera. Neck: Supple. Trachea midline. Lungs: Normal respiratory effort. Lungs are clear. Cor: Irregular irregular with tachycardia. Chest incision C/D/I GI: Soft, mild distension. Neuro: A+O x 3. Normal speech, mentation, gait. Cranial nerves II - XII grossly intact. No gross motor or sensory deficit. Ext: No C/C. 1+ edema Skin: Warm and dry without rash. Course Vital Signs Vital signs: Vital Signs Temperature 96.6 F L 07/26/23 21:26 Pulse 185 H 07/26/23 21:26 Respiratory Rate 18 07/26/23 21:26 Pulse Oximetry 99 07/26/23 21:26 Temperature 96.6 F L 07/26/23 21:26 Temperature Source Temporal Artery Scan 07/26/23 21:26 Pulse 185 H 07/26/23 21:26 Respiratory Rate 18 12/06/23 21:26 Pulse Oximetry 99 07/26/23 21:26 Oxygen Delivery Method Room Air 07/26/23 21:26 Oxygen Flow Rate 0 07/26/23 21:26 Critical Care Time Critical Care Time Critical Care Time: Yes Total Critical Care Time: 60 Attestation: Upon my evaluation, this patient had a high probability of imminent or life-threatening deterioration, which required my direct attention, intervention, and personal management. I have personally provided 60 minutes of critical care time exclusive of time spent on separately billable procedures. Time includes review of laboratory data, radiology results, discussion with consultants, and monitoring for potential decompensation. Interventions were performed as documented above.
[2023-07-26 21:45] LABS: Abs Immature Grans 0.02 10^3/uL (0.0-0.06); Absolute Basophil Count 0.08 10^3/uL (0.0-0.2); Absolute Eosinophil Count 0.33 10^3/uL (0.0-0.7); Absolute Lymphocyte Count 0.69 10^3/uL (1.2-3.4); Absolute Monocyte Count 1.03 10^3/uL (0.1-0.8); Absolute Neutrophil Count 4.09 10^3/uL (1.2-6.7); Basophils % 1.3; Eosinophils % 5.3; HCT 31.9 % (36.0-46.0); HGB 10.2 g/dL (11.2-15.7); Immature Grans % 0.3; Lymphocytes % 11.1; MCH 27.9 pg (27.0-33.0); MCV 87 fL (80-95); MPV 9.9 fL (8.0-11.0); Monocytes % 16.5; Neutrophils % 65.5; Nucleated RBC 0.3 % (0.0-0.3); Platelet Count 139 10^3/uL (130-400); RBC 3.66 10^6/uL (3.93-5.22); RDW 13.7 % (11.7-14.6); RDW-SD 42.6 fL; WBC 6.24 10^3/uL (4.4-10.8)
[2023-07-26 21:55] LABS: Anion Gap 12.3 mmol/L (3-11); BUN 9 mg/dL (7-18); CO2 22.7 mmol/L (21.0-32.0); CREATININE 0.8 mg/dL (0.55-1.02); Calcium 9.5 mg/dL (8.5-10.1); Chloride 105 mmol/L (98-107); Estimated GFR 86.42 (mL/min/1.73m2); Glucose 237 mg/dL (74-106); Magnesium 1.7 mg/dL (1.8-2.4); Sodium 140 mmol/L (136-145)
[2023-07-26] MEDS: MAGNESIUM SULFATE 2 GM/50 ML BAG IVPB (22:04)
[2023-07-26] MEDS: Lactated Ringers 500 ML IV (22:20)
[2023-07-26] MEDS: dilTIAZem 125 MG in Normal Saline 100 ML IV (22:25)
--- NOTE | 2023-07-26 22:28 | HPE_ITS ---
Date of service: 07/26/23 Time of Service: 22:28 Assessment and Plan Assessment and plan (1) Afib: Status: Chronic Assessment and plan: Post-op Afib, no other precipitant evident. Will monitor response to Cardizem. If no significant improvement would either switch to verapamil and/or add additional beta kalie. Given evident relation to post-op setting I'm not sure anticoagulation would be indicated -- at this point. But otherwise patient candidate for DOAC with [id number] of 4. Will defer to cardiology in this regard. 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 In ER AF/RVR noted, EKG with non-specific STTWCs. No CP (other than some residual sternal incisional pain), no SOB. In ER has received Cardizem 20 mg IV with transient slowing of rate to approx 130s and has been ordered for another 10 mg, then infusion. Mg 1.7, has received 2 gm IV Mg SO4; K 4.0. I was asked to evaluate for admission. Patient states she had brief post-op episode of AF in 2005, none since (to her knowledge). Is on Nadolol for hypertension. Review of Systems Narrative: per HPI PFSH All Active Problems (Updated 07/26/23 @ 22:36 by Dennis Lopes MD) Afib (Chronic) Chest pain (Acute) Pre-procedural cardiovascular examination (Acute) Anemia (Chronic) Vaginal irritation (Acute) Obesity (Chronic) Medical History Atrial fibrillation and flutter Hypertension CAD (coronary artery disease) [place]2 2005[place] [facility] [place] Thrombocytopenia Cirrhosis Surgical History S/P CABG (coronary artery bypass graft) S/P hernia repair S/P abdominoplasty S/[place] [facility] [place] History of esophagogastroduodenoscopy (EGD) (~02/07/14) [facility] normal esophagus, chronic gastritis, normal duodenum Family History Father Lung disease Mother Diabetes Heart disease Sister Heart disease Social History Smoking/Tobacco Use Status: Former Tobacco Use Smoking risk assessment performed?: Yes Alcohol Intake: former Drug use: Never Housing: house Seatbelt use: always Do you feel safe at home: Yes Do you feel safe in your relationship?: Yes Meds Allergies and Home Medications Allergies Allergy/AdvReac Type Severity Reaction Status Date / Time No Known Allergies Allergy Verified 07/26/23 21:30 Home Medications Medication Instructions Recorded Confirmed Type aspirin 81 mg tablet,delayed 81 mg PO DAILY AM 02/17/18 07/26/23 History release (Aspir-) atorvastatin 40 mg tablet 40 mg PO HS 02/17/18 07/26/23 History calcium citrate 315 mg 1 tab PO BID 02/17/18 07/26/23 History calcium-vitamin D3 6.25 mcg (250 unit) tablet (Calcitrate) metformin 500 mg tablet,extended 1,000 mg PO BID 02/17/18 07/26/23 History release 24 hr (Glucophage XR) multivitamin (Daily Multi-Vitamin 1 tab PO BID 02/17/18 07/26/23 History tablet) vit B51-[id number] factor-folic 500 mcg PO DAILY AM 02/17/18 07/26/23 History acid cmb#2 500 mcg-20 mg-800 mcg tablet (Intrinsi V48-Vtuvux) clotrimazole-betamethasone 1 1 applic topical BID 10 days #15 06/07/19 06/15/23 Rx %-0.05 % topical cream (Lotrisone) grams empagliflozin 25 mg tablet 25 mg PO DAILY 06/19/19 07/26/23 History (Jardiance) ferrous sulfate 325 mg (65 mg 325 mg PO DAILY 04/04/22 07/26/23 History iron) tablet (FerrouSul) magnesium chloride 64 mg 64 mg PO DAILY 04/04/22 07/26/23 History (magnesium chloride) tablet,delayed release mecobalamin (vitamin B12) 1,000 1,000 mcg PO DAILY 04/04/22 07/26/23 History mcg chewable tablet nitroglycerin 0.4 mg sublingual 0.4 mg sublingual Q5M PRN 04/04/22 07/26/23 History tablet (Nitrostat) sitagliptin phosphate 100 mg 100 mg PO DAILY 04/04/22 07/26/23 History tablet (Januvia) clopidogrel 75 mg tablet 75 mg PO DAILY 03/17/23 07/26/23 History insulin glargine 100 unit/mL (3 60 unit subcut QPM 03/20/23 07/26/23 History mL) subcutaneous pen (Lantus Solostar U-100 Insulin) nadolol 20 mg tablet 20 mg PO DAILY 06/15/23 07/26/23 History Exam Narrative Exam Narrative: 160/78, 150-170 during visit; 35.9, 14, 97% RA. HEENT atraumatic; neck supple; lungs clear; heart irr/irr; abdomen soft and NT; extremities w/o edema; neuro Ox3, lucid, moves all 4s Results Labs 07/26/23 21:39 07/26/23 21:39 Labs: Laboratory Results - last 24 hr 07/26/23 21:39 WBC 6.24 RBC 3.66 L Hgb 10.2 L Hct 31.9 L MCV 87 MCH 27.9 MCHC 32.0 RDW 13.7 Plt Count 139 MPV 9.9 Immature Gran % 0.3 Neutrophils % 65.5 Lymphocytes % 11.1 Monocytes % 16.5 Eosinophils % 5.3 Basophils % 1.3 Nucleated RBC % 0.3 Absolute Neutrophils 4.09 Absolute Lymphocytes 0.69 L Absolute Monocytes 1.03 H Absolute Eosinophils 0.33 Absolute Basophils 0.08 Sodium 140 Potassium 4.0 Chloride 105 Carbon Dioxide 22.7 Anion Gap 12.3 H BUN 9 Creatinine 0.8 Est GFR (CKD-EPI 2020) 86.42 Glucose 237 H Calcium 9.5 Magnesium 1.7 L Last Vital Signs Temp 35.9 C L 07/26/23 21:26 Pulse 98 H 07/26/23 22:10 Resp 14 07/26/23 22:11 BP 160/78 H 07/26/23 22:23 Pulse Ox 97 07/26/23 22:11 Time Spent Time spent with Patient: 40-54 minutes Time was spent: preparing to see the patient(eg.review tests), obtaining and/or reviewing separately otained hiistory, ordering medications,tests, procedures, referring, communicating with other health career technical counselor and indepentently interpreting results
[2023-07-26] MEDS: dilTIAZem 25 MG/5 ML VIAL 10 MG IVP (22:40)
--- NOTE | 2023-07-26 23:15 | RT.EKG_ITS ---
APPROVED REPORT Exam: Resting ECG Reason for Exam: Afib Patient Location: E HR:136 bpm ECG Measurements Heart Rate 136 AXIS MN [id number] P [id number] QRSd 78 QRS 39 QT 304 T -57 QTc 458 Conclusion Atrial flutter with predominant 2:1 AV block...A-rate 267, multiple Ps Low voltage, precordial leads...precordial leads <1.0mV Rate related ST changes resolved.
[2023-07-26 23:51] LABS: INR 1.1 (0.9-1.1); PTT Activated 20.4 sec (23.6-32.8); Prothrombin Time 11.3 sec (9.1-11.1)
[2023-07-27] VITALS (24 sets, daily range): BP systolic 107–141; BP diastolic 39–72; PULSE 68–95; RESP 14–30; TEMP 36.8–37.2; O2SAT 93–98
--- NOTE | 2023-07-27 00:42 | W.PC.ACHO ---
Registration Status: REG ER Primary Language: Preferred Language: Urdu ED Information & Data Chief Complaint Arrhythmia 07/26/23 21:46 Triage Note started feeling arrhythmia 07/26/23 21:26 around 1999. denies CP. pulse 110-190 with EMS Medical / Surgical History (Last Reviewed 07/26/23 @ 22:34 by Dennis Lopes MD) Atrial fibrillation and flutter Hypertension CAD (coronary artery disease) Diabetes Thrombocytopenia Cirrhosis (Last Reviewed 07/26/23 @ 22:34 by Dennis Lopes MD) S/P CABG (coronary artery bypass graft) S/P hernia repair S/P abdominoplasty S/P laparoscopic sleeve gastrectomy History of esophagogastroduodenoscopy (EGD) (~02/07/14) Most Recent Vital Signs Temperature 35.9 C L 07/26/23 21:26 Temperature Source Temporal Artery Scan 07/26/23 21:26 Pulse 87 07/27/23 00:16 Pulse 92 H 07/27/23 00:16 Respiratory Rate 21 07/27/23 00:16 Respiratory Effort Normal 07/26/23 21:43 Blood Pressure 122/53 L 07/27/23 00:16 Blood Pressure Mean 71 07/27/23 00:16 Pulse Oximetry 96 07/27/23 00:16 Oxygen Delivery Method Room Air 07/26/23 21:26 Oxygen Flow Rate 0 07/26/23 21:26 Allergies No Known Allergies Allergy (Verified 07/26/23 21:30) Precautions Isolation Standard precaution 07/26/23 21:43 Active Medications Generic Name Dose Route Start Last Admin Trade Name Freq PRN Reason Stop Dose Admin Diltiazem HCl 125 mg/ Sodium 125 mls @ 5 mls/hr 07/26/23 21:45 07/26/23 22:52 Chloride IV 10 mg/hr INFUSION RICARDA 10 mls/hr Titration Protocol 5 MG/HR IV IV Catheter Type [Left Forearm Peripheral IV ] IV Catheter Type [Right Peripheral IV Forearm] IV Catheter Gauge [Left 20 Forearm] IV Catheter Gauge [Right 18 Forearm] Diet Orders Category Date Time Status npo [Nothing Per Oral] [DIET] Nutrition 07/27/23 Breakfast Active Diagnostics 07/26/23 07/26/23 Range/Units 23:25 21:39 WBC 6.24 (4.4-10.8) 10^3/uL RBC 3.66 L (3.93-5.22) 10^6/uL Hgb 10.2 L (11.2-15.7) g/dL Hct 31.9 L (36.0-46.0) % MCV 87 (80-95) fL MCH 27.9 (27.0-33.0) pg MCHC 32.0 (32.0-36.0) % RDW 13.7 (11.7-14.6) % Plt Count 139 (130-400) 10^3/uL MPV 9.9 (8.0-11.0) fL Immature Gran % 0.3 Neutrophils % 65.5 Lymphocytes % 11.1 Monocytes % 16.5 Eosinophils % 5.3 Basophils % 1.3 Nucleated RBC % 0.3 (0.0-0.3) % Absolute Neutrophils 4.09 (1.2-6.7) 10^3/uL Absolute Lymphocytes 0.69 L (1.2-3.4) 10^3/uL Absolute Monocytes 1.03 H (0.1-0.8) 10^3/uL Absolute Eosinophils 0.33 (0.0-0.7) 10^3/uL Absolute Basophils 0.08 (0.0-0.2) 10^3/uL PT 11.3 H (9.1-11.1) sec INR 1.1 (0.9-1.1) APTT 20.4 L (23.6-32.8) sec Sodium 140 (136-145) mmol/L Potassium 4.0 (3.5-5.1) mmol/L Chloride 105 (98-107) mmol/L Carbon Dioxide 22.7 (21.0-32.0) mmol/L Anion Gap 12.3 H (3-11) mmol/L BUN 9 (7-18) mg/dL Creatinine 0.8 (0.55-1.02) mg/dL Est GFR (CKD-EPI 2020) 86.42 (mL/min/1.73m2) Glucose 237 H (74-106) mg/dL Calcium 9.5 (8.5-10.1) mg/dL Magnesium 1.7 L (1.8-2.4) mg/dL Intake and Output - 24 Hour Total 07/26/23 21:15 thru 07/26/23 23:02 Intake Total 22.25 Balance 22.25 Weight 105.233 kg Intake: IV 22.25 Falls Risk Assessment History of Falls No History 07/26/23 21:54 Contributing Factors Unstable 07/26/23 21:54 Ambulatory Aids Independent 07/26/23 21:54 Tubes/Lines W/no contributing factors 07/26/23 21:54 Gait Evaluation W/no contributing factors 07/26/23 21:54 Cognition No cognitive impairment 07/26/23 21:54 Fall Total Score 23 07/26/23 21:54 Level of Risk Standard/Low Risk 07/26/23 21:54 Problems (Last Reviewed 07/26/23 @ 22:34 by Dennis Lopes MD) Atrial fibrillation with RVR (Acute) Afib (Chronic) v v v v v v v v v Sending and/or Receiving Nurses: Please use comment section below to note any information pertinent to the patient hand-off not included above. Information / Comments: Report received from:Xiomara steven RN
[2023-07-27] MEDS: Acetaminophen 500 MG TAB 1000 MG PO ×2 (01:30→07:36)
[2023-07-27 06:40] LABS: Bilirubin Negative (Negative); Blood Negative (Negative); Clarity Clear (Clear); Glucose >=1000 mg/dL (Negative); Ketones Negative (Negative); Leukocyte Esterase Negative (Negative); Nitrite Negative (Negative); Specific Gravity 1.015 (1.005-1.025); Urobilinogen 0.2 mg/dL (Up to 0.2)
--- NOTE | 2023-07-27 07:15 | RT.EKG_ITS ---
APPROVED REPORT Exam: Resting ECG Reason for Exam: Conversion to SR Patient Location: I HR:74 bpm ECG Measurements Heart Rate 74 AXIS PA 77 P -18 QRSd 97 QRS 18 QT 448 T 20 QTc 497 Conclusion Sinus rhythm...normal P axis, V-rate 50- 99 Short PA interval...PA <110mS
--- NOTE | 2023-07-27 08:12 | CCONE_ITS ---
Date of service: 07/27/23 Time of Service: 08:12 History of Present Illness Narrative: This is a 58-year-old woman with known coronary artery disease. She recently had a single-vessel coronary artery bypass graft procedure done at [facility], discharged on July 17. At the time of her bypass procedure her Plavix was discontinued. She was discharged on medications which included atorvastatin Jardiance iron metformin nadolol and Januvia. She also was advised to take baby aspirin. She presented to the ER here with atrial fibrillation, not surprising given her recent cardiac surgery. She converted to sinus rhythm. As regards medication recommendations, I think Eliquis and baby aspirin are appropriate. As noted. When she was discharged from [facility] recently she was not on clopidogrel PFSH All Active Problems (Updated 07/26/23 @ 23:28 by El Downs MD) Atrial fibrillation with RVR (Acute) Afib (Chronic) Chest pain (Acute) Pre-procedural cardiovascular examination (Acute) Anemia (Chronic) Vaginal irritation (Acute) Obesity (Chronic) Medical History Atrial fibrillation and flutter Hypertension CAD (coronary artery disease) stent x2 2005, stent x2 2007 at [facility] [place] Diabetes Thrombocytopenia Cirrhosis Surgical History S/P CABG (coronary artery bypass graft) S/P hernia repair S/P abdominoplasty S/P laparoscopic sleeve gastrectomy [facility] [place] 2013 RH History of esophagogastroduodenoscopy (EGD) (~02/07/14) [facility] normal esophagus, chronic gastritis, normal duodenum Family History Father Lung disease Mother Diabetes Heart disease Sister Heart disease Social History Smoking/Tobacco Use Status: Former Tobacco Use Smoking risk assessment performed?: Yes Alcohol Intake: former Drug use: Never Housing: house Seatbelt use: always Do you feel safe at home: Yes Do you feel safe in your relationship?: Yes Results Last Vital Signs Temp 37.2 C 07/27/23 01:39 Pulse 75 07/27/23 06:01 Resp 26 H 07/27/23 06:01 BP 125/59 L 07/27/23 06:01 Pulse Ox 95 07/27/23 06:01 Labs 07/26/23 21:39 07/26/23 21:39 Labs: Laboratory Results - last 24 hr 07/26/23 07/26/23 07/27/23 21:39 23:25 06:19 WBC 6.24 RBC 3.66 L Hgb 10.2 L Hct 31.9 L MCV 87 MCH 27.9 MCHC 32.0 RDW 13.7 Plt Count 139 MPV 9.9 Immature Gran % 0.3 Neutrophils % 65.5 Lymphocytes % 11.1 Monocytes % 16.5 Eosinophils % 5.3 Basophils % 1.3 Nucleated RBC % 0.3 Absolute Neutrophils 4.09 Absolute Lymphocytes 0.69 L Absolute Monocytes 1.03 H Absolute Eosinophils 0.33 Absolute Basophils 0.08 PT 11.3 H INR 1.1 APTT 20.4 L Sodium 140 Potassium 4.0 Chloride 105 Carbon Dioxide 22.7 Anion Gap 12.3 H BUN 9 Creatinine 0.8 Est GFR (CKD-EPI 2020) 86.42 Glucose 237 H Calcium 9.5 Magnesium 1.7 L NT-Pro-B Natriuret Pep Urine Color Yellow Urine Clarity Clear Urine pH 5.0 Ur Specific [place] 1.015 Urine Protein Negative Urine Ketones Negative Urine Blood Negative Urine Nitrite Negative Urine Bilirubin Negative Urine Urobilinogen 0.2 Ur Leukocyte Esterase Negative Urine Glucose >=1000 H 07/27/23 07/27/23 07:26 07:28 WBC RBC Hgb Hct MCV MCH MCHC RDW Plt Count MPV Immature Gran % Neutrophils % Lymphocytes % Monocytes % Eosinophils % Basophils % Nucleated RBC % Absolute Neutrophils Absolute Lymphocytes Absolute Monocytes Absolute Eosinophils Absolute Basophils PT INR APTT Sodium Potassium Chloride Carbon Dioxide Anion Gap BUN Creatinine Est GFR (CKD-EPI 2020) Glucose Calcium Magnesium Cancelled NT-Pro-B Natriuret Pep Cancelled Urine Color Urine Clarity Urine pH Ur Specific [place] Urine Protein Urine Ketones Urine Blood Urine Nitrite Urine Bilirubin Urine Urobilinogen Ur Leukocyte Esterase Urine Glucose
[2023-07-27] MEDS: Nadolol 40 MG TAB 20 MG PO ×2 (08:44→10:54)
[2023-07-27] MEDS: Empaglifozin 25 MG TAB PO (08:45)
[2023-07-27] MEDS: Magnesium Chloride 64 MG TABCR PO (08:45)
[2023-07-27] MEDS: Aspirin E.C. 81 MG TABEC PO (08:46)
[2023-07-27] MEDS: Multivitamin TAB 1 TAB PO (08:46)
[2023-07-27] MEDS: Apixaban 5 MG TAB PO (08:47)
[2023-07-27] MEDS: metFORMIN C.R. 500 MG TABCR 1000 MG PO (08:47)
[2023-07-27] MEDS: Ferrous Sulfate 325 MG TAB PO (08:47)
[2023-07-27 09:16] LABS: Anion Gap 10.5 mmol/L (3-11); BUN 10 mg/dL (7-18); CO2 24.5 mmol/L (21.0-32.0); CREATININE 0.6 mg/dL (0.55-1.02); Calcium 9.7 mg/dL (8.5-10.1); Chloride 106 mmol/L (98-107); Estimated GFR 105.28 (mL/min/1.73m2); Glucose 132 mg/dL (74-106); Magnesium 1.9 mg/dL (1.8-2.4); NT-proBNP 1155 pg/mL (<300); Potassium 3.9 mmol/L (3.5-5.1); Sodium 141 mmol/L (136-145)
[2023-07-27 09:21] LABS: Troponin I 844 ng/L (<or=60)
[2023-07-27] MEDS: dilTIAZem 125 MG in Normal Saline 100 ML 10 MG IV (10:10)
--- NOTE | 2023-07-27 11:34 | PT.INIE ---
PT Notes Visit Reasons: AF Physical Therapy Inpatient Initial Evaluation Date: 07/27/2023 Referring Doctor: Tiffany Jimenez MD PT Orders: PT CONSULT: Limited ability Precautions: Fall. Standard. Sternotomy precautions still in place. Patient Profile/Admitting Diagnosis: Lily is a 58-year-old female S/P CABG at [facility] [place] on POD 11 who presented to the ED on 07/26/2023 due to sudden onset palpitations with HR ranging up to 200 bpm. Patient is admitted for monitoring of atrial fibrillation. Will PMHX: All Active Problems (Updated 07/26/23 @ 23:28 by El Downs MD) Atrial fibrillation with RVR (Acute) Afib (Chronic) Chest pain (Acute) Pre-procedural cardiovascular examination (Acute) Anemia (Chronic) Vaginal irritation (Acute) Obesity (Chronic) Medical History Atrial fibrillation and flutter Hypertension CAD (coronary artery disease) stent x2 2005, [facility] Cirrhosis Surgical History S/P CABG (coronary artery bypass graft) S/P hernia repair S/P abdominoplasty S/P laparoscopic sleeve gastrectomy [facility] [place] 2013 RHHistory of esophagogastroduodenoscopy (EGD) (~02/07/14) [facility] normal esophagus, chronic gastritis, normal duodenum Social History/Home Situation: Lives with in a private home. 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 Equipment Owned/DME: Splinting pillow for sternomy. Subjective: Hopeful about being able to go home today. Does not feel she needs anydevices to walk. Knows her median sternotomy precautions. Objective: General Observation: Seated on bedside chair. Figueroa present throughout session. Mental Status: Alert and oriented as to person, place, time, and purpose. Able to pay attention, focus, and respond appropriately. Pain:Up to 4-/5/10 at incisional site during movement transition of sit<>stand Vital Signs: HR stayed between 71-85 bpm throughout the walk ROM: Right Upper Extremity: On median sternotomy precautions, otherwise WFL Left Upper Extremity: On median sternotomy precautions, otherwise WFL Right Lower Extremity: Hip flexion WFL. Hip abduction WFL. Knee flexion WFL. Ankle dorsiflexion WFL. Ankle plantarflexion WFL. Left Lower Extremity: Hip flexion WFL. Hip abduction WFL. Knee flexion WFL. Ankle dorsiflexion WFL. Ankle plantarflexion WFL. Strength: Right Upper Extremity: On median sternotomy precautions, otherwise grossy 4/5 Left Upper Extremity: On median sternotomy precautions, otherwise grossy 4/5 Right Lower Extremity: Hip flexors 5/5. Hip abductors 5/5. Knee flexors 5/5. Knee extensors 4/5. Ankle dorsiflexors 4/5. Ankle plantarflexors 5/5. Left Lower Extremity: Hip flexors 5/5. Hip abductors 5/5. Knee flexors 5/5. Knee extensors 4/5. Ankle dorsiflexors 4/5. Ankle plantarflexors 5/5. Bed Mobility/Transfers: Rolling independent Supine to sit independent Sit to supine independent Sit to stand independent, uses splinting pillow on chest Stand to sit independent, uses splinting pillow on chest Bed to reclining chair independent Reclining chair to bed independent Gait: Facilitated safe performance of level surface ambulation using no assistive device covering a distance of 400 feet with 2 short standing rests with HR ranging from 71 beats per minutes rate of 85 bpm. No report of increased chest pain or shortness of breath inpatient. Able to pace self effectively. Balance: Static Sitting: Normal Dynamic Sitting: Normal Static Standing: Fair Dynamic Standing: Fair Special Tests: Mobility Limitations Standardized Measure [facility] AM-PAC 6 clicks Basic Mobility Inpatient Short Form: Raw Score: 24 CMS Score: 0% deficit Informed Consent/Education: Patient was instructed in purpose of PT consult and plan of care. Agreeable to proceed with established PT POC to achieve personal goals. Assessment: Patient presents with clinical signs and symptoms consistent with current/admitting diagnoses that have resulted to mobility limitations, gait instability, generalized weakness, and overall ADL decline as demonstrated by the following impairment level findings: 1. Impaired activity tolerance 2. Limitation of joint range of motion in B shoulders due to median sternotomy precautions being in pace Impairments are contributing to the following functional limitations: 1. Increased completion time for mobility ADL performance Patient [place] a 44529 moderate complexity based on the following: History: 58-year-old female with past medical history as indicated above Examination: As above Presentation: Stable Decision Makin moderate complexity Goals: N/A. PT evaluation only. Plan of Care/Treatment Plan: N/A. PT evaluation only. DISCHARGE RECOMMENDATIONS: [X] Home with no PT services. Home when medically cleared by hospitalist. Will benefit from cardiac rehab post op. [] Home with services [specify] [] Home with outpatient PT [] [] SNF for continued rehabilitation [] [] Clasp Machine Operator Care [] [] SNF versus LTC based on ability to participate and progress [] TREATMENT CODE/TIME: 78198 x 20 minutes for 1 unit beginning at 11:08 AM. Thank you for the opportunity to participate in the care of this patient. Mary Wetzel PT, DPT, CLT [facility] [place], [place]
[2023-07-27 11:55] LABS: Troponin I 685 ng/L (<or=60)
--- NOTE | 2023-07-27 12:00 | W.PM.DS.N ---
Date of service: 07/27/23 Time of Service: 12:00 DS: Diagnosis Discharge Diagnosis (1) Atrial fibrillation with RVR: Status: Acute (2) S/P CABG (coronary artery bypass graft): (3) CAD (coronary artery disease): (4) Hypertension: (5) Diabetes: (6) Thrombocytopenia: (7) Cirrhosis: Discharge Plan Disposition Patient Disposition: Home Condition: Stable Discharge Details Reason For Visit: AF Admit Date/Time: 07/26/23 22:52 Admit Provider: Dennis Lopes Attending Provider: Dennis Lopes Primary Care Provider: Cydney Yin Hospital Course Hospital Course: Ms Bates is a 58 year old female with PMHx of CAD s/p CABG x1 at [facility] [place]23, as well as h/o HTN, hyperlipidemia, IDDM2, cirrhosis, who was a patient in [facility] ICU under the hospitalist service from 07/26/23 until 07/27/23 for new onset rapid Afib. She was treated with intravenous cardizem (bolus and drip) and converted to NSR. She was initiated on anticoagulation with apixaban and maintained on her baby aspirin. Per cardiology recommendations, the patient's cardizem drip was discontinued. She was transitioned to an increased dose of her home nadolol. She did have an elevation of troponin, but given her recent CABG and her Afib as well as lack of evidence for acute ischemia on EKGs, this is felt to be due to demand ischemia rather than a true ACS. She is being discharged home today with recommendations for extended cardiac monitoring once it is available at our facility (which may not be for 2 weeks). She should follow up with cardiology in 2 weeks as well as with CT surgery as scheduled. Care for patient as well as completion of her discharge summary on day of discharge took 45 minutes. Home Meds and New Rx's Prescriptions: New Eliquis 5 mg Tablet 5 mg PO BID Qty: 60 0RF nadolol 40 mg tablet 40 mg PO DAILY Qty: 30 0RF Continued clotrimazole-betamethasone [Lotrisone] 1-0.05 % cream 1 applic TP BID 10 Days Qty: 15 2RF Jardiance 25 mg tablet 25 mg PO DAILY ferrous sulfate [FerrouSul] 325 mg (65 mg iron) tablet 325 mg PO DAILY Januvia 100 mg tablet 100 mg PO DAILY magnesium chloride 64 mg tablet,delayed release (DR/EC) 64 mg PO DAILY nitroglycerin [Nitrostat] 0.4 mg tablet, sublingual 0.4 mg sublingual Q5M PRN Rx Instructions: do not exceed 3 doses per episode mecobalamin (vitamin B12) 1,000 mcg tablet,chewable 1,000 mcg PO DAILY insulin glargine [Lantus Solostar U-100 Insulin] 100 unit/mL (3 mL) insulin pen 60 unit subcut QPM multivitamin [Daily Multi-Vitamin] 1 EACH tablet 1 tab PO BID Patient Comments: 02/17 18 multi vit with mineral aspirin [Aspir-81] 81 MG tablet,delayed release (DR/EC) 81 mg PO DAILY AM calcium citrate-vitamin D3 [Calcitrate-Vitamin D] 1 EACH tablet 1 tab PO BID Patient Comments: 02/17/18 calciom citrate vit D 600 mg / 400 mg tab Intrinsi [id number] 1 EACH tablet 500 mcg PO DAILY AM Patient Comments: 02/17 vit b12 500 mcg tab daily atorvastatin 40 MG tablet 40 mg PO HS metformin [Glucophage XR] 500 MG tablet extended release 24 hr 1,000 mg PO BID Discontinued nadolol 20 mg tablet 20 mg PO DAILY Discharge Instructions Instructions: Apixaban (By mouth), A-fib (Atrial Fibrillation) (DC) Additional Instructions: Follow up with cardiology in 2 weeks. Keep your cardiothoracic surgery appointment. Return to the hospital with any fever, bleeding, uncontrolled pain, new and different chest pain, shortness of breath. Follow up for a cardiac event recorder. Referrals: CARDIOLOGY,[facility] [OTHER] - (2 weeks) Cydney Yin [Primary Care Provider] - Activity:: Activity as Tolerated Equipment/Supplies:: No Equipment Needed Diet:: As Tolerated Discharge Orders Discharge Orders: Discharge Order (Routine); Ordered 07/27/23 Ordered By: Tiffany Jimenez Other Ambulatory Orders: Cardiac Event Recorder (Routine) Timeframe: 2 Weeks Facility: [facility] - Location: Respiratory Therapy Ordered By: Tiffany Jimenez DS: Summary Time Spent with Patient providing and/or coordinating discharge services: Greater than 30 minutes Status at Discharge Functional status at discharge: independent ambulation Overall status at discharge: patient is back to baseline Mental Status: mental status grossly normal Speech and Movement: speech and movement normal Mood: congruent mood Affect: normal affect Exam Narrative Exam Narrative: General: Pleasant middle-aged female who is sitting up comfortably in a chair, A&Ox3, NAD, appears comfortable, on RA HEENT: EOMI, MMM Heart: RRR, no m/r/g Lungs: CTAB Abdomen: soft, nontender, nondistended Extremities: no edema BLEs Psych Mental Status: mental status grossly normal Speech and Movement: speech and movement normal Mood: congruent mood Affect: normal affect DS: Data Vitals/I&O Vitals and I&O: Vital Signs Temperature 36.8 C 07/27/23 07:05 Temperature Source Temporal Artery Scan 07/27/23 07:05 Pulse 75 07/27/23 09:01 Pulse 84 07/27/23 09:01 Respiratory Rate 16 07/27/23 09:01 Respiratory Effort Normal, Non-Labored 07/27/23 05:09 Respiratory Depth Normal 07/27/23 05:09 Respiratory Pattern Normal 07/27/23 05:09 Blood Pressure 125/55 L 07/27/23 09:01 Blood Pressure Mean 75 07/27/23 09:01 Blood Pressure Position Sitting 07/27/23 07:05 Pulse Oximetry 96 07/27/23 09:01 Oxygen Delivery Method Room Air 07/27/23 07:05 Oxygen Flow Rate 0 07/27/23 07:05 Pain Level 5 07/27/23 07:36 Intake & Output 07/26/23 07/27/23 07/27/23 23:59 11:59 23:59 Intake Total .. 538.667 / 538.667 Output Total 1200 / 1200 Balance . / .25 -661.333 / -661.333 Weight 105.233 kg 105.1 kg Intake: IV . 118.667 / 118.667 Oral 420 / 420 Output: Urine 1200 / 1200 Other: Urine Color Yellow Comment Mixed with stool and toilet paper. Stool Size Small Stool Characteristics Soft Brown Voiding Methods Toilet Data Completed and Pending Labs on day of discharge: Labs from last 24 hours 07/27/23 07/27/23 07/27/23 11:30 08:27 07:28 WBC RBC Hgb Hct MCV MCH MCHC RDW Plt Count MPV Immature Gran % Neutrophils % Lymphocytes % Monocytes % Eosinophils % Basophils % Nucleated RBC % Absolute Neutrophils Absolute Lymphocytes Absolute Monocytes Absolute Eosinophils Absolute Basophils PT INR APTT Sodium 141 Potassium 3.9 Chloride 106 Carbon Dioxide 24.5 Anion Gap 10.5 BUN 10 Creatinine 0.6 Est GFR (CKD-EPI 2020) 105.28 Glucose 132 H Calcium 9.7 Magnesium 1.9 Troponin I 685 H* 844 H* NT-Pro-B Natriuret Pep 1155 H Cancelled TSH 1.80 Urine Color Urine Clarity Urine pH Ur Specific [place] Urine Protein Urine Ketones Urine Blood Urine Nitrite Urine Bilirubin Urine Urobilinogen Ur Leukocyte Esterase Urine Glucose 07/27/23 07/27/23 07/26/23 07:26 06:19 23:25 WBC RBC Hgb Hct MCV MCH MCHC RDW Plt Count MPV Immature Gran % Neutrophils % Lymphocytes % Monocytes % Eosinophils % Basophils % Nucleated RBC % Absolute Neutrophils Absolute Lymphocytes Absolute Monocytes Absolute Eosinophils Absolute Basophils PT 11.3 H INR 1.1 APTT 20.4 L Sodium Potassium Chloride Carbon Dioxide Anion Gap BUN Creatinine Est GFR (CKD-EPI 2020) Glucose Calcium Magnesium Cancelled Troponin I NT-Pro-B Natriuret Pep TSH Urine Color Yellow Urine Clarity Clear Urine pH 5.0 Ur Specific [place] 1.015 Urine Protein Negative Urine Ketones Negative Urine Blood Negative Urine Nitrite Negative Urine Bilirubin Negative Urine Urobilinogen 0.2 Ur Leukocyte Esterase Negative Urine Glucose >=1000 H 07/26/23 21:39 WBC 6.24 RBC 3.66 L Hgb 10.2 L Hct 31.9 L MCV 87 MCH 27.9 MCHC 32.0 RDW 13.7 Plt Count 139 MPV 9.9 Immature Gran % 0.3 Neutrophils % 65.5 Lymphocytes % 11.1 Monocytes % 16.5 Eosinophils % 5.3 Basophils % 1.3 Nucleated RBC % 0.3 Absolute Neutrophils 4.09 Absolute Lymphocytes 0.69 L Absolute Monocytes 1.03 H Absolute Eosinophils 0.33 Absolute Basophils 0.08 PT INR APTT Sodium 140 Potassium 4.0 Chloride 105 Carbon Dioxide 22.7 Anion Gap 12.3 H BUN 9 Creatinine 0.8 Est GFR (CKD-EPI 2020) 86.42 Glucose 237 H Calcium 9.5 Magnesium 1.7 L Troponin I NT-Pro-B Natriuret Pep TSH Urine Color Urine Clarity Urine pH Ur Specific [place] Urine Protein Urine Ketones Urine Blood Urine Nitrite Urine Bilirubin Urine Urobilinogen Ur Leukocyte Esterase Urine Glucose PFSH All Active Problems (Updated 07/26/23 @ 23:28 by El Downs MD) Atrial fibrillation with RVR (Acute) Afib (Chronic) Chest pain (Acute) Pre-procedural cardiovascular examination (Acute) Anemia (Chronic) Vaginal irritation (Acute) Obesity (Chronic) Medical History Atrial fibrillation and flutter Hypertension CAD (coronary artery disease) stent x2 2005, stent x2 2007 [place] [facility] Diabetes Thrombocytopenia Cirrhosis Surgical History S/P CABG (coronary artery bypass graft) S/P hernia repair S/P abdominoplasty S/P laparoscopic sleeve gastrectomy [facility] [place] History of esophagogastroduodenoscopy (EGD) (~02/07/14) [facility] normal esophagus, chronic gastritis, normal duodenum Family History Father Lung disease Mother Diabetes Heart disease Sister Heart disease Social History Smoking/Tobacco Use Status: Former Tobacco Use Smoking risk assessment performed?: Yes Alcohol Intake: former Drug use: Never Housing: house Seatbelt use: always Do you feel safe at home: Yes Do you feel safe in your relationship?: Yes Time Spent with Patient Time Spent with Patient: 45-69 minutes Time was spent: preparing to see the patient(eg.review tests), obtaining and/or reviewing separately otained hiistory, ordering medications,tests, procedures, referring, communicating with other health career services director, indepentently interpreting results, counseling the patient and care coordination
--- NOTE | 2023-07-27 12:42 | PDOC.CMDIS ---
Date of service: 07/27/23 Time of Service: 12:50 LACE Index Scoring Tool Questions: Length of Stay (in days): 1 Was the patient admitted via the E.D.?: Yes E.D. Visits: 0 Answers: Total Score: 4 Risk of Readmission: Low Risk Care Management Discharge Plan Reason for Hospitalization: Afib Discharge Plan: Lily will return home with new prescriptions; CM confirmed with [facility] medication availability-full coverage per pharmacist. She will follow up with her PCP, cardiology and cardiac rehab as prescribed, anticipate she will have new monitor, as well per MD. She will transport via private vehicle with family. Patient/Family Education Needs: Review discharge instructions, discuss Ask Me Three.
== END 2023-07-27 13:30 | disposition home or self-care (01) ==
LOC: ER 23:28 → ICU 07-27 00:51
PROVIDERS: Internal Medicine; Admitting Provider General Practice; Emergency Provider Emergency Medicine; PCP Nurse Practitioner Family; Visit Provider General Practice
DX: I97.190 Other postprocedural cardiac functional disturbances following cardiac surgery (principal); I48.91 Unspecified atrial fibrillation; Z95.1 Presence of aortocoronary bypass graft; I10 Essential (primary) hypertension; I25.119 Atherosclerotic heart disease of native coronary artery with unspecified angina pectoris; D69.6 Thrombocytopenia, unspecified; E11.9 Type 2 diabetes mellitus without complications; K74.60 Unspecified cirrhosis of liver; Z87.891 Personal history of nicotine dependence; Z79.4 Long term (current) use of insulin; Z79.82 Long term (current) use of aspirin
CPT/HCPCS: 00123; 36415; 80048; 93005; 96365; 96366; 96368; 96375; 96376; 97162; 99291; 81003; 83735; 83880; 84443; 84484; 85025; 85610; 85730; 93010; 99222; 99239; G0378; J3490

== ENCOUNTER 2023-07-30 20:21 | Emergency (ER) | payer BC, SELFPAY ==
[2023-07-30] VITALS (25 sets, daily range): BP systolic 98–149; BP diastolic 46–123; PULSE 76–185; RESP 14–28; TEMP 37.2; O2SAT 93–98
--- NOTE | 2023-07-30 20:15 | RT.EKG_ITS ---
APPROVED REPORT Exam: Resting ECG Reason for Exam: AFIB Patient Location: E HR:154 bpm ECG Measurements Heart Rate 154 AXIS ND [id number] P [id number] QRSd 82 QRS 63 QT 260 T 247 QTc 436 Conclusion Atrial fibrillation with rapid V-rate...A-rate 249 Ventricular tachycardia, unsustained...sequence of 3 or more V complexes Repolarization abnormality, prob rate related...ST dep, T neg, tachycardia afib rvr, run of PVCs
--- NOTE | 2023-07-30 20:42 | ED.GENADUL_ITS ---
Discharge Plan Disposition Patient Disposition: Home Condition: Improving Discharge Details Chief Complaint: Arrhythmia Clinical Impression: Atrial fibrillation, Atrial fibrillation with rapid ventricular response, Pleural effusion, Abdominal ascites Primary Care Provider: Cydney Yin ED Provider: Zain Jack Home Meds and New Rx's Prescriptions: No Action clotrimazole-betamethasone [Lotrisone] 1-0.05 % cream 1 applic TP BID 10 Days Qty: 15 2RF Jardiance 25 mg tablet 25 mg PO DAILY ferrous sulfate [FerrouSul] 325 mg (65 mg iron) tablet 325 mg PO DAILY Januvia 100 mg tablet 100 mg PO DAILY magnesium chloride 64 mg tablet,delayed release (DR/EC) 64 mg PO DAILY nitroglycerin [Nitrostat] 0.4 mg tablet, sublingual 0.4 mg sublingual Q5M PRN Rx Instructions: do not exceed 3 doses per episode mecobalamin (vitamin B12) 1,000 mcg tablet,chewable 1,000 mcg PO DAILY insulin glargine [Lantus Solostar U-100 Insulin] 100 unit/mL (3 mL) insulin pen 60 unit subcut QPM multivitamin [Daily Multi-Vitamin] 1 EACH tablet 1 tab PO BID Patient Comments: 02/17 18 multi vit with mineral aspirin [Aspir-81] 81 MG tablet,delayed release (DR/EC) 81 mg PO DAILY AM calcium citrate-vitamin D3 [Calcitrate-Vitamin D] 1 EACH tablet 1 tab PO BID Patient Comments: 02/17/18 calciom citrate vit D 600 mg / 400 mg tab Intrinsi [id number]-[id number] 1 EACH tablet 500 mcg PO DAILY AM Patient Comments: 02/17 vit b12 500 mcg tab daily atorvastatin 40 MG tablet 40 mg PO HS metformin [Glucophage XR] 500 MG tablet extended release 24 hr 1,000 mg PO BID Eliquis 5 mg Tablet 5 mg PO BID Qty: 60 0RF nadolol 40 mg tablet 40 mg PO DAILY Qty: 30 0RF Discharge Instructions Instructions: A-fib (Atrial Fibrillation) (ED), Pleural Effusion (ED), Ascites (ED) Additional Instructions: Please follow-up closely with your primary care physician and your cardiology team. Return to the emergency department for any worsening symptoms Medical Decision Making 58-year-old female history of coronary artery disease, recent coronary artery bypass graft, A-fib on Eliquis presents with rapid heart rate that began around 8 PM this evening, no chest pain or shortness of breath no nausea vomiting or diaphoresis, no peripheral edema pain or history of thromboembolic disease, A- fib RVR on EKG and monitor, hemodynamically stable mentating normally no respiratory distress. Patient has been taking her cardiac meds as prescribed her nadolol dose was increased from 20 to 40 mg. Will send screening labs to assess for electrolyte derangement will assess BNP as well as troponin, portable chest x-ray. Lower suspicion for ACS. Lower suspicion for PE or aortic pathology given history and physical. Trial of rate control with diltiazem bolus. Close reassessment of symptoms disposition pending reassessment and results 22: 03 patient is converted to normal sinus rhythm after 1 bolus of diltiazem. Replating magnesium given hypomagnesemia. Patient started on Lasix given evidence of pleural effusion likely related to abdominal ascites in the setting of cirrhosis. No respiratory distress no fever. Patient counseled to return for any worsening symptoms. Will follow-up closely with primary care physician. HPI General Date/Time Provider Initiated Documentation: 07/30/23 20:27 . HPI Narrative: 58-year-old female history of coronary disease recent coronary artery bypass graft, A-fib on aspirin and apixaban, presents with rapid heart rate that began around 8 PM this evening denies chest pain or shortness of breath denies nausea or vomiting or diaphoresis. No leg swelling or pain no history of thromboembolic disease. 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 Related Data Home Medications Medication Instructions Recorded Confirmed aspirin 81 mg tablet,delayed 81 mg PO DAILY AM 02/17/18 07/30/23 release (Aspir-) atorvastatin 40 mg tablet 40 mg PO HS 02/17/18 07/30/23 calcium citrate 315 mg 1 tab PO BID 02/17/18 07/30/23 calcium-vitamin D3 6.25 mcg (250 unit) tablet (Calcitrate) metformin 500 mg tablet,extended 1,000 mg PO BID 02/17/18 07/30/23 release 24 hr (Glucophage XR) multivitamin (Daily Multi-Vitamin 1 tab PO BID 02/17/18 07/30/23 tablet) vit [id number] factor-folic 500 mcg PO DAILY AM 02/17/18 07/30/23 acid cmb#2 500 mcg-20 mg-800 mcg tablet (Intrinsi [id number]) clotrimazole-betamethasone 1 1 applic topical BID 10 days #15 06/07/19 07/30/23 %-0.05 % topical cream (Lotrisone) grams empagliflozin 25 mg tablet 25 mg PO DAILY 06/19/19 07/30/23 (Jardiance) ferrous sulfate 325 mg (65 mg 325 mg PO DAILY 04/04/22 07/30/23 iron) tablet (FerrouSul) magnesium chloride 64 mg 64 mg PO DAILY 04/04/22 07/30/23 (magnesium chloride) tablet,delayed release mecobalamin (vitamin B12) 1,000 1,000 mcg PO DAILY 04/04/22 07/30/23 mcg chewable tablet nitroglycerin 0.4 mg sublingual 0.4 mg sublingual Q5M PRN 04/04/22 07/30/23 tablet (Nitrostat) sitagliptin phosphate 100 mg 100 mg PO DAILY 04/04/22 07/30/23 tablet (Januvia) insulin glargine 100 unit/mL (3 60 unit subcut QPM 03/20/23 07/30/23 mL) subcutaneous pen (Lantus Solostar U-100 Insulin) apixaban 5 mg tablet (Eliquis) 5 mg PO BID #60 tabs 07/27/23 07/30/23 nadolol 40 mg tablet 40 mg PO DAILY #30 tabs 07/27/23 07/30/23 Previous Rx's Medication Instructions Recorded clotrimazole-betamethasone 1 1 applic topical BID 10 days #15 06/07/19 %-0.05 % topical cream (Lotrisone) grams apixaban 5 mg tablet (Eliquis) 5 mg PO BID #60 tabs 07/27/23 nadolol 40 mg tablet 40 mg PO DAILY #30 tabs 07/27/23 Allergies Allergy/AdvReac Type Severity Reaction Status Date / Time No Known Allergies Allergy Verified 07/30/23 20:49 General Stated Complaint: Arrhythmia RYAN: 3 Review of Systems Narrative: Review of Systems Constitutional: negative Eyes: negative ENT: negative Cardiovascular: Tachycardia Respiratory: negative Gastrointestinal: negative : negative Musculoskeletal: negative Skin: negative Neurologic: negative Psych: negative PFSH All Active Problems (Updated 07/30/23 @ 22:05 by Zain Jack MD) Abdominal ascites (Acute) Pleural effusion (Acute) Atrial fibrillation with rapid ventricular response (Acute) Atrial fibrillation (Chronic) Atrial fibrillation with RVR (Acute) Afib (Chronic) Chest pain (Acute) Pre-procedural cardiovascular examination (Acute) Anemia (Chronic) Vaginal irritation (Acute) Obesity (Chronic) Medical History Atrial fibrillation and flutter Hypertension CAD (coronary artery disease) stent x2 2005, stent x2 2007 at [facility] Diabetes Thrombocytopenia Cirrhosis Surgical History S/P CABG (coronary artery bypass graft) S/P hernia repair S/P abdominoplasty S/P laparoscopic sleeve gastrectomy [facility] 2013 RH History of esophagogastroduodenoscopy (EGD) (~02/07/14) [facility] normal esophagus, chronic gastritis, normal duodenum Family History Father Lung disease Mother Diabetes Heart disease Sister Heart disease Social History Smoking/Tobacco Use Status: Former Tobacco Use Smoking risk assessment performed?: Yes Alcohol Intake: former Drug use: Never Substance use type: does not use Housing: house Seatbelt use: always Do you feel safe at home: Yes Do you feel safe in your relationship?: Yes Exam Narrative Exam Narrative: Physical Examination General: alert, awake, cooperative, resting comfortably, no acute distress HEENT: normocephalic, atraumatic; PERRL, EOM intact, conjunctiva normal; no nasal discharge; moist mucous membranes, oral and pharyngeal mucosa normal, tolerating secretions Neck: supple, trachea midline; full ROM Chest: normal to inspection Respiratory: normal respiratory effort, speaking in full sentences, clear to auscultation, no wheezing, rales or rhonchi Cardiac: Irregularly irregular tachycardia, S1S2 intact, no murmurs rubs or gallops GI: abdomen soft, non-tender, non-distended; no palpable mass or hepatosplenomegaly Skin: no lesions, rashes or trauma appreciated Neuro: AAOx3, normal speech, moving all extremities Extremities: No peripheral edema Psych: Appropriate mood and affect Course Vital Signs Vital signs: Vital Signs Temperature 37.2 C 07/30/23 20:25 Pulse 180 H 07/30/23 20:25 Respiratory Rate 16 07/30/23 20:25 Blood Pressure 128/72 07/30/23 20:25 Pulse Oximetry 95 07/30/23 20:25 Temperature 37.2 C 07/30/23 20:25 Temperature Source Temporal Artery Scan 07/30/23 20:25 Pulse 180 H 07/30/23 20:25 Respiratory Rate 16 07/30/23 20:25 Respiratory Effort Normal, Non-Labored 07/30/23 20:37 Blood Pressure 128/72 07/30/23 20:25 Blood Pressure Position Supine 07/30/23 20:25 Pulse Oximetry 95 07/30/23 20:25 Oxygen Delivery Method Room Air 07/30/23 20:25 Oxygen Flow Rate 0 07/30/23 20:25 Pain Level 0 07/30/23 20:25
[2023-07-30] MEDS: dilTIAZem 25 MG/5 ML VIAL 20 MG IVP ×2 (20:47)
[2023-07-30 20:56] LABS: Abs Immature Grans 0.02 10^3/uL (0.0-0.06); Absolute Basophil Count 0.05 10^3/uL (0.0-0.2); Absolute Eosinophil Count 0.22 10^3/uL (0.0-0.7); Absolute Lymphocyte Count 0.68 10^3/uL (1.2-3.4); Absolute Monocyte Count 0.92 10^3/uL (0.1-0.8); Absolute Neutrophil Count 4.62 10^3/uL (1.2-6.7); Basophils % 0.8; Eosinophils % 3.4; HCT 30.7 % (36.0-46.0); HGB 9.6 g/dL (11.2-15.7); Immature Grans % 0.3; Lymphocytes % 10.4; MCH 27.2 pg (27.0-33.0); MCHC 31.3 % (32.0-36.0); MCV 87 fL (80-95); MPV 9.8 fL (8.0-11.0); Monocytes % 14.1; Platelet Count 129 10^3/uL (130-400); RBC 3.53 10^6/uL (3.93-5.22); RDW 13.8 % (11.7-14.6); RDW-SD 42.9 fL; WBC 6.51 10^3/uL (4.4-10.8)
--- NOTE | 2023-07-30 21:11 | DI.RAD_ITS ---
Exam(s) XR PORTABLE CHEST AP EXAM: XR PORTABLE CHEST AP CLINICAL HISTORY: afib rvr TECHNIQUE: 2D digital imaging was performed. COMPARISON: CR CHEST 2 VIEWS PA,LAT from 02/17/2018 FINDINGS: LUNGS: Lung clear. Moderate to large sized pleural effusion. Surgical clips noted left upper lobe. HEART: Mostly obscured by pleural effusion. Coronary artery stent. AORTA: Normal diameter. BONES: Unremarkable sternal wires now present. Soft tissues: Unremarkable. IMPRESSION: Moderate sized left pleural effusion. DATA REPOSITORY: RADIATION DOSE DELIVERED:
--- NOTE | 2023-07-30 21:15 | RT.EKG_ITS ---
APPROVED REPORT Exam: Resting ECG Reason for Exam: post conversion Patient Location: E HR:87 bpm ECG Measurements Heart Rate 87 AXIS WY 153 P 35 QRSd 82 QRS 44 QT 377 T 0 QTc 453 Conclusion Sinus rhythm...normal P axis, V-rate 60- 99 Abnormal T, consider ischemia, anterior leads...T <-0.20mV, V2-V4 sinus rhythm, normal axis, normal intervals, t wave inversions anterior leads
[2023-07-30 21:18] LABS: INR 1.2 (0.9-1.1); PTT Activated 26.3 sec (23.6-32.8); Prothrombin Time 12.1 sec (9.1-11.1)
[2023-07-30 21:21] LABS: ALT 32 U/L (14-59); AST 28 U/L (15-37); Albumin 2.9 g/dL (3.4-5.0); Alkaline Phosphatase 76 U/L (46-116); Anion Gap 10.4 mmol/L (3-11); BUN 11 mg/dL (7-18); Bilirubin, Total 0.6 mg/dL (0.2-1.0); CO2 24.6 mmol/L (21.0-32.0); CREATININE 0.8 mg/dL (0.55-1.02); Calcium 9.3 mg/dL (8.5-10.1); Chloride 103 mmol/L (98-107); Estimated GFR 86.42 (mL/min/1.73m2); Glucose 248 mg/dL (74-106); NT-proBNP 727 pg/mL (<300); Potassium 3.9 mmol/L (3.5-5.1); Sodium 138 mmol/L (136-145); TSH (W/Ref FT4) 1.51 uIU/mL (0.36-3.74)
[2023-07-30 21:23] LABS: Troponin I 96 ng/L (<or=60)
[2023-07-30 21:27] LABS: Magnesium 1.7 mg/dL (1.8-2.4)
[2023-07-30] MEDS: Furosemide 100 MG/10 ML VIAL 80 MG IVP (21:32)
--- NOTE | 2023-07-30 21:36 | DI.VRAD_ITS ---
PROCEDURE INFORMATION: Exam: XR Chest Exam date and time: 07/30/2023 9:05 PM Age: 58 years old Clinical indication: Other: Afib rvr; Prior surgery; Surgery date: <1 month; Surgery type: Single valve replacement. TECHNIQUE: Imaging protocol: Radiologic exam of the chest. Views: 1 view. Other technique: Portable exam. COMPARISON: CR CHEST 2 VIEWS PA,LAT 02/17/2018 7:54 PM FINDINGS: Lungs: Pulmonary vascularity not increased. Pleural spaces: There appears to be a moderate-sized left pleural effusion. The left heart border is obscured. Heart/Mediastinum: See Pleural spaces finding. Bones/joints: Status post median sternotomy. IMPRESSION: Apparent moderate-sized left pleural effusion. Associated atelectasis is not excludable. Dictated and Authenticated by: Courtney Meehan MD. Ordering:PETTY Pittman MD
[2023-07-30] MEDS: MAGNESIUM SULFATE 1 GM/100 ML BAG IVPB (21:49)
== END 2023-07-30 23:19 | disposition home or self-care (01) ==
PROVIDERS: Emergency Provider Emergency Medicine; PCP Nurse Practitioner Family
DX: I48.0 Paroxysmal atrial fibrillation (principal); R00.2 Palpitations; R18.8 Other ascites; I10 Essential (primary) hypertension; I25.10 Atherosclerotic heart disease of native coronary artery without angina pectoris; E11.9 Type 2 diabetes mellitus without complications; Z98.84 Bariatric surgery status; Z95.5 Presence of coronary angioplasty implant and graft; Z95.1 Presence of aortocoronary bypass graft; Z79.4 Long term (current) use of insulin; Z79.82 Long term (current) use of aspirin; Z79.01 Long term (current) use of anticoagulants; Z87.891 Personal history of nicotine dependence
CPT/HCPCS: 80053; 93005; 96365; 96375; 99283; 71045; 83735; 83880; 84443; 84484; 85025; 85610; 85730; 93010; J1940; J3475

== ENCOUNTER 2023-08-15 20:29 | Outpatient (REF) | payer BC, SELFPAY ==
[2023-08-15 20:50] LABS: Absolute Basophil Count 0.03 10^3/uL (0.0-0.2); Absolute Eosinophil Count 0.19 10^3/uL (0.0-0.7); Absolute Lymphocyte Count 0.42 10^3/uL (1.2-3.4); Absolute Monocyte Count 0.61 10^3/uL (0.1-0.8); Absolute Neutrophil Count 1.91 10^3/uL (1.2-6.7); Basophils % 0.9; HCT 32.9 % (36.0-46.0); HGB 9.8 g/dL (11.2-15.7); Lymphocytes % 13.3; MCH 25.4 pg (27.0-33.0); MCHC 29.8 % (32.0-36.0); MCV 85 fL (80-95); Monocytes % 19.3; Neutrophils % 60.5; Platelet Count 100 10^3/uL (130-400); RBC 3.86 10^6/uL (3.93-5.22); RDW 13.8 % (11.7-14.6); RDW-SD 42.7 fL; WBC 3.16 10^3/uL (4.4-10.8)
[2023-08-15 20:58] LABS: Iron 20 ug/dL (50-170)
[2023-08-15 21:00] LABS: INR 1.1 (0.9-1.1); Prothrombin Time 10.6 sec (9.1-11.1)
[2023-08-15 21:14] LABS: ALT 36 U/L (14-59); AST 34 U/L (15-37); Alkaline Phosphatase 68 U/L (46-116); Anion Gap 6.6 mmol/L (3-11); BUN 7 mg/dL (7-18); Bilirubin, Total 0.6 mg/dL (0.2-1.0); CO2 27.4 mmol/L (21.0-32.0); CREATININE 0.7 mg/dL (0.55-1.02); Calcium 9.1 mg/dL (8.5-10.1); Chloride 105 mmol/L (98-107); Estimated GFR 101.44 (mL/min/1.73m2); Ferritin 37 ng/mL (8-252); Glucose 155 mg/dL (74-106); Potassium 3.6 mmol/L (3.5-5.1); Sodium 139 mmol/L (136-145); Total Protein 6.8 g/dL (6.4-8.2)
[2023-08-15 21:32] LABS: NT-proBNP 426 pg/mL (<300)
== END 2023-08-15 20:30 | disposition home or self-care (01) ==
LOC: NCHCN 20:29
PROVIDERS: PCP Nurse Practitioner Family; Visit Provider Nurse Practitioner Family
DX: R60.9 Edema, unspecified (principal); Z98.84 Bariatric surgery status
CPT/HCPCS: 80053; 82728; 83540; 83880; 85025; 85610

== ENCOUNTER 2023-08-18 13:41 | Outpatient (RCR) | payer BC, SELFPAY | END 2023-08-20 23:59 | disposition home or self-care (01) | LOC: CR 13:41 | PROVIDERS: PCP Nurse Practitioner Family; Visit Provider Internal Medicine Interventional Cardiology | DX: I25.810 Atherosclerosis of coronary artery bypass graft(s) without angina pectoris (principal) ==

== ENCOUNTER 2023-08-22 09:30 | Outpatient (CLI) | payer BC, SELFPAY ==
--- NOTE | 2023-08-22 09:30 | RT.EKG_ITS ---
APPROVED REPORT Exam: Resting ECG Reason for Exam: afib Patient Location: O HR:80 bpm ECG Measurements Heart Rate 80 AXIS UT 131 P 25 QRSd 100 QRS 27 QT 372 T 2 QTc 430 Conclusion Sinus rhythm...normal P axis, V-rate 50- 99 Nonspecific T abnormalities, anterior leads...T <-0.10mV, V2-V4 I have reviewed and interpreted ECG and agree with software generated interpretation.
== END 2023-08-22 09:31 | disposition home or self-care (01) ==
LOC: DI.CARD 09:31
PROVIDERS: PCP Nurse Practitioner Family; Visit Provider Internal Medicine Interventional Cardiology
DX: I48.91 Unspecified atrial fibrillation (principal)
CPT/HCPCS: 93010

== ENCOUNTER 2023-08-22 10:39 | Outpatient (CLI) | payer BC, SELFPAY ==
[2023-08-22 12:17] LABS: INR 1.3 (0.9-1.1); Prothrombin Time 12.6 sec (9.1-11.1)
[2023-08-22 13:06] LABS: ALT 26 U/L (14-59); AST 23 U/L (15-37); Alkaline Phosphatase 63 U/L (46-116); Anion Gap 6.8 mmol/L (3-11); BUN 13 mg/dL (7-18); CO2 29.2 mmol/L (21.0-32.0); CREATININE 0.6 mg/dL (0.55-1.02); Calcium 9.3 mg/dL (8.5-10.1); Chloride 103 mmol/L (98-107); Estimated GFR 105.28 (mL/min/1.73m2); Glucose 120 mg/dL (74-106); Potassium 3.9 mmol/L (3.5-5.1); Sodium 139 mmol/L (136-145); Total Protein 6.9 g/dL (6.4-8.2)
== END 2023-08-22 10:40 | disposition home or self-care (01) ==
LOC: LBO 10:40
PROVIDERS: Internal Medicine Interventional Cardiology; PCP Nurse Practitioner Family; Visit Provider Nurse Practitioner Family
DX: K74.60 Unspecified cirrhosis of liver (principal); R63.5 Abnormal weight gain
CPT/HCPCS: 36415; 80053; 85610

== ENCOUNTER 2023-09-20 10:12 | Outpatient (RCR) | payer BC, SELFPAY | END 2023-09-20 23:59 | disposition home or self-care (01) | LOC: CR 10:12 | PROVIDERS: PCP Nurse Practitioner Family; Visit Provider Internal Medicine Interventional Cardiology | DX: Z95.1 Presence of aortocoronary bypass graft (principal); Z51.89 Encounter for other specified aftercare | CPT/HCPCS: S9472 ==

== ENCOUNTER 2023-11-13 19:40 | Outpatient (REF) | payer BC, SELFPAY ==
[2023-11-13 21:25] LABS: Hemoglobin A1C 7.2 % (<5.7)
== END 2023-11-13 19:41 | disposition home or self-care (01) ==
LOC: NCHCN 19:40
PROVIDERS: PCP Nurse Practitioner Family; Visit Provider Nurse Practitioner Family
DX: E11.9 Type 2 diabetes mellitus without complications (principal)
CPT/HCPCS: 83036

== ENCOUNTER → 2023-11-16 10:31 | Outpatient (CLI) | payer BC, SELFPAY ==
--- NOTE | 2023-11-16 | DI.RAD_ITS ---
Exam(s) XR KNEE RT 3V AP,LAT,ELADIO EXAM: XR KNEE RT 3V AP,LAT,ELADIO CLINICAL HISTORY: PAIN RT KNEE M25.561. TECHNIQUE: 2D digital imaging was performed. Three views. COMPARISON: No exams were available for comparison FINDINGS: BONES: No acute fracture is present. No bony destructive lesion is seen. JOINTS: The joint spaces are maintained. Mild periarticular spurring. The knee is normally aligned. No joint effusion is seen. SOFT TISSUE: Normal. IMPRESSION: Mild degenerative changes. DATA REPOSITORY: RADIATION DOSE DELIVERED:
== END ==
PROVIDERS: PCP Nurse Practitioner Family; Visit Provider Family Medicine
DX: M25.561 Pain in right knee (principal); M76.891 Other specified enthesopathies of right lower limb, excluding foot
CPT/HCPCS: 73562

== ENCOUNTER 2024-03-01 16:19 | Outpatient (REF) | payer BC, SELFPAY ==
--- NOTE | 2024-03-01 | PAPFT_PTH ---
PATIENT: Lily Bates LOC: [facility]#:[id number] AGE/SX: 58/F ROOM: RE03/01/[address]: Cydney Yin : 1965 BED: DIS: 03/01/2024 SPEC #: [id number] RECD: 03/01/24 16:35 STATUS: SAMIR WAYNE #: [id number] ARANZA: 03/01/24 00:[address]: Cydney Yin DEPT: [facility] Cytology RECD BY: Muriel Saha Tissues: 1 - CX/ENDOCX FOR PAP SMEARS Procedures: PAP THIN PREP/UVM Screening HPV DNA PROBE Comments: [id number] (HPV 16 & 18/45)
== END 2024-03-01 16:20 | disposition home or self-care (01) ==
LOC: NCHCN 16:19
PROVIDERS: PCP Nurse Practitioner Family; Visit Provider Nurse Practitioner Family
DX: Z12.4 Encounter for screening for malignant neoplasm of cervix (principal)
CPT/HCPCS: 88142; 87624

== ENCOUNTER → 2024-03-11 01:20 | Outpatient (CLI) | payer BC, SELFPAY ==
--- NOTE | 2024-03-11 | DI.MAMMO_ITS ---
Exam(s) MAMMO SCREENING EXAM: MAMMO SCREENING CLINICAL HISTORY: SCREENING Z12.31 TECHNIQUE: Bilateral full field digital CC and MLO mammographic images were obtained with 3D tomosyn thesis and utilizing computer aided detection (CAD). COMPARISON: Available for comparison. FINDINGS: Masses/Architectural Distortion: None seen. Microcalcifications: No suspicious pleomorphic-type are seen. Skin Thickening/Nipple Retraction: None. IMPRESSION: 1. No significant interval change with no specific features of malignancy noted. 2. Unless there is more urgent need, screening mammography is recommended, as per [employer] guidelines. BI-RADS Category 1 - Negative Breast Density - Category B - Scattered areas of fibroglandular density Breast density category C or D implies that the patient has dense breast tissue. Dense breast tissue is very common and is not abnormal but dense breast tissue can make it harder to find cancer on a ma mmogram. Also, dense breast tissue may increase their breast cancer risk. This information about the result of the mammogram report was provided to the patient to raise their awareness. Use this report when you speak with the patient about their risks for breast cancer, which includes their family hist ory. At that time, you may recommend for more screening tests (Ultrasound or MRI) as they might be us eful based on their risk. A negative radiographic report should not delay biopsy if a dominant or clinically suspicious mass is present. Up to ten percent of cancers are not identified on mammography. A negative report may reinforce clinical impression. Adenosis and dense breasts may obscure an underlying neoplasm. False positive reports average 6 to 10%. Patient will receive a letter notifying them of these results.
== END ==
PROVIDERS: PCP Nurse Practitioner Family; Visit Provider Nurse Practitioner Family
DX: Z12.31 Encounter for screening mammogram for malignant neoplasm of breast (principal)
CPT/HCPCS: 77063; 77067

== ENCOUNTER 2024-03-11 02:21 | Outpatient (CLI) | payer BC, SELFPAY ==
[2024-03-11 16:51] LABS: Abs Immature Grans 0.01 10^3/uL (0.0-0.06); Absolute Basophil Count 0.02 10^3/uL (0.0-0.2); Absolute Eosinophil Count 0.17 10^3/uL (0.0-0.7); Absolute Lymphocyte Count 0.53 10^3/uL (1.2-3.4); Absolute Monocyte Count 0.39 10^3/uL (0.1-0.8); Absolute Neutrophil Count 2.19 10^3/uL (1.2-6.7); Basophils % 0.6 %; Eosinophils % 5.1 %; HCT 36.3 % (36.0-46.0); HGB 11.9 g/dL (11.2-15.7); Immature Grans % 0.3 %; MCH 28.3 pg (27.0-33.0); MCHC 32.8 % (32.0-36.0); MCV 86 fL (80-95); Monocytes % 11.8 %; Neutrophils % 66.2 %; RDW 14.4 % (11.7-14.6); RDW-SD 45.1 fL; WBC 3.31 10^3/uL (4.4-10.8)
[2024-03-11 17:03] LABS: INR 1.3 (0.9-1.1); PTT Activated 26.5 sec (23.6-32.8); Prothrombin Time 12.4 sec (9.1-11.1)
[2024-03-11 17:08] LABS: Iron 62 ug/dL (50-170); Total Iron Binding Capacity 373 ug/dL (250-450); Transferrin Sat 17 % (15-50)
[2024-03-11 17:27] LABS: Platelet Count 70 10^3/uL (130-400)
[2024-03-11 18:53] LABS: Vitamin D 25 Total 38.9 ng/mL (30-100)
[2024-03-11 19:13] LABS: ALT 49 U/L (14-59); AST 34 U/L (15-37); Albumin 3.5 g/dL (3.4-5.0); Alkaline Phosphatase 59 U/L (46-116); BUN 14 mg/dL (7-18); Bilirubin, Total 0.97 mg/dL (0.2-1.0); CREATININE 0.7 mg/dL (0.55-1.02); Calcium 9.3 mg/dL (8.5-10.1); Calculated LDL 27 mg/dL (<100); Chloride 103 mmol/L (98-107); Cholesterol 121 mg/dL (<200); Estimated GFR 101.44 (mL/min/1.73m2); Ferritin 23 ng/mL (8-252); Glucose 280 mg/dL (74-106); HDL Cholesterol 42 mg/dL (40-60); Magnesium 1.7 mg/dL (1.8-2.4); Potassium 3.8 mmol/L (3.5-5.1); Sodium 140 mmol/L (136-145); Total Protein 7.1 g/dL (6.4-8.2); Triglyceride 261 mg/dL (<150); Vitamin B12 1419 pg/mL (193-986)
[2024-03-11 19:16] LABS: Folate > 20.0 ng/mL (8.6-20.0)
[2024-03-12 18:56] LABS: Parathyroid Hormone,Intact 28 pg/mL (19-88)
[2024-03-13 08:43] LABS: AFP Tumor Marker <2.5 ng/mL (<8.1)
[2024-03-13 11:49] LABS: Transferrin 283 mg/dL (201-352)
[2024-03-15 10:45] LABS: Thiamine (Vitamin B1), WB 113 nmol/L (70-180)
== END 2024-03-11 02:22 | disposition home or self-care (01) ==
LOC: LBO 02:21
PROVIDERS: PCP Nurse Practitioner Family; Visit Provider Family Medicine
DX: E66.9 Obesity, unspecified (principal); K30 Functional dyspepsia; K74.60 Unspecified cirrhosis of liver; Z13.6 Encounter for screening for cardiovascular disorders
CPT/HCPCS: 36415; 80053; 80061; 82306; 82105; 82607; 82728; 82746; 83540; 83550; 83735; 83970; 84425; 84466; 85025; 85610; 85730

== ENCOUNTER → 2024-03-14 00:19 | Outpatient (CLI) | payer BC, SELFPAY ==
--- NOTE | 2024-03-14 | DI.DEXA_ITS ---
Exam(s) XR DEXA BONE DENSITY W/WO DIEGO EXAM: XR DEXA BONE DENSITY W/WO DIEGO CLINICAL HISTORY: Z78.0 Asymptomatic menopausal state TECHNIQUE: Routine DEXA evaluation of the lumbar spine, hip, or forearm. COMPARISON: No exams were available for comparison FINDINGS: Performed on a Hologic unit. Lateral image: No compression fracture evident. Lumbar Spine total T-score: 5.4 Hip total T-score:2.7 Independent reading at the level of the femoral neck yields T-score of 2.1 Forearm total T-score: 0.1 IMPRESSION: Bone mineral density measures in the normal range. Fracture risk is low. Note: Any spine fracture indicates 5x risk for subsequent spine fracture and 2x risk for subsequent h ip fracture. World Health Organization criteria for BMD interpretation classify patients: Normal...... T- Score at or above -1.0 Osteopenic... T- Score between -1.0 and -2.5 Osteoporosis... T-Score at or below -2.5
== END ==
PROVIDERS: PCP Nurse Practitioner Family; Visit Provider Nurse Practitioner Family
DX: Z78.0 Asymptomatic menopausal state (principal)
CPT/HCPCS: 77080

== ENCOUNTER 2024-10-17 07:51 | Outpatient (CLI) | payer BC, SELFPAY ==
--- NOTE | 2024-10-17 07:45 | RT.EKG_ITS ---
APPROVED REPORT Exam: Resting ECG Reason for Exam: afib Patient Location: O HR:70 bpm ECG Measurements Heart Rate 70 AXIS DE 142 P 37 QRSd 105 QRS 48 QT 404 T 34 QTc 436 Conclusion Sinus rhythm. Minor nondiagnostic ST abnormalities
== END 2024-10-17 07:52 | disposition home or self-care (01) ==
LOC: DI.CARD 07:51
PROVIDERS: PCP Nurse Practitioner Family; Visit Provider Internal Medicine Cardiovascular Disease
DX: I48.91 Unspecified atrial fibrillation (principal); R07.9 Chest pain, unspecified
CPT/HCPCS: 93010

== ENCOUNTER 2024-12-10 12:14 | Outpatient (CLI) | payer BC, SELFPAY ==
[2024-12-10 10:40] LABS: Absolute Basophil Count 0.03 10^3/uL (0.0-0.2); Absolute Eosinophil Count 0.14 10^3/uL (0.0-0.7); Absolute Lymphocyte Count 0.42 10^3/uL (1.2-3.4); Absolute Monocyte Count 0.34 10^3/uL (0.1-0.8); Absolute Neutrophil Count 2.52 10^3/uL (1.2-6.7); Basophils % 0.9 %; Eosinophils % 4.1 %; HCT 38.8 % (36.0-46.0); HGB 13.3 g/dL (11.2-15.7); Lymphocytes % 12.2 %; MCH 30.8 pg (27.0-33.0); MCHC 34.3 % (32.0-36.0); MCV 90 fL (80-95); MPV 9.9 fL (8.0-11.0); Monocytes % 9.9 %; Neutrophils % 72.9 %; RBC 4.32 10^6/uL (3.93-5.22); RDW 13.6 % (11.7-14.6); RDW-SD 44.4 fL; WBC 3.45 10^3/uL (4.4-10.8)
[2024-12-10 10:49] LABS: INR 1.3 (0.9-1.1); Prothrombin Time 12.7 sec (9.1-11.1)
[2024-12-10 10:51] LABS: Diff Comment PLT Morph Reviewed; Platelet Count 67 10^3/uL (130-400); RBC Morphology Normal
[2024-12-10 11:20] LABS: ALT 48 U/L (14-59); AST 34 U/L (15-37); Albumin 3.6 g/dL (3.4-5.0); Alkaline Phosphatase 72 U/L (46-116); BUN 11 mg/dL (7-18); Bilirubin, Total 1.1 mg/dL (0.2-1.0); CREATININE 0.9 mg/dL (0.55-1.02); Calcium 9.5 mg/dL (8.5-10.1); Chloride 105 mmol/L (98-107); Estimated GFR 74.57 (mL/min/1.73m2); Glucose 323 mg/dL (74-106); Potassium 3.7 mmol/L (3.5-5.1); Sodium 140 mmol/L (136-145); TSH 1.37 uIU/mL (0.36-3.74); Total Protein 7.3 g/dL (6.4-8.2)
[2024-12-11 09:21] LABS: AFP Tumor Marker <2.5 ng/mL (<8.1)
== END 2024-12-10 12:15 | disposition home or self-care (01) ==
LOC: LBO 12:14
PROVIDERS: PCP Nurse Practitioner Family; Visit Provider Internal Medicine Gastroenterology
DX: K75.81 Nonalcoholic steatohepatitis (NASH) (principal); K74.60 Unspecified cirrhosis of liver
CPT/HCPCS: 36415; 80053; 82105; 83036; 84443; 85025; 85610

== ENCOUNTER 2025-04-03 02:00 | Outpatient (CLI) | payer BC, SELFPAY ==
--- NOTE | 2025-04-03 | DI.MAMMO_ITS ---
Exam(s) MAMMO SCREENING EXAM: MAMMO SCREENING CLINICAL HISTORY: SCREENING, Z12.31 TECHNIQUE: Mammograms were interpreted according to the usual protocol including computer analysis with CAD system, tomosynthesis and C-view imaging. COMPARISON: 2018 through 2023 FINDINGS: The breasts are composed of scattered fibroglandular densities, Breast Density category B. No suspicious masses or suspicious microcalcifications are seen. No skin thickening or abnormal axillary lymph nodes are seen. There has been no significant change from prior exams. IMPRESSION: BI-RADS Category 1, Negative mammogram Yearly screening mammography is recommended. Breast Density - Category B - There are scattered areas of fibroglandular density. Breast density Category C or D implies that the patient has dense breast tissue. Dense breast tissue can make it harder to find cancer on a mammogram. Dense breast tissue is also associated with an increased risk of breast cancer. This information about the result of the mammogram report was provided to the patient to raise their awareness. Use this report when you speak with the patient about their risks for breast cancer, which includes their family history. At that time, you may recommend additional screening tests (Ultrasound or MRI) as these tests may add significant information. A negative radiographic report should not delay biopsy if a dominant or clinically suspicious mass is present. Up to ten percent of cancers are not identified on mammography. A negative report may reinforce clinical impression. Adenosis and dense breasts may obscure an underlying neoplasm. False positive reports average 6 to 10%. Patient will receive a letter notifying them of these results.
== END 2025-04-03 02:20 ==
LOC: DI 02:00
PROVIDERS: PCP Nurse Practitioner Family; Visit Provider Nurse Practitioner Family
DX: Z12.31 Encounter for screening mammogram for malignant neoplasm of breast (principal); R92.323 Mammographic fibroglandular density, bilateral breasts
CPT/HCPCS: 77063; 77067

== ENCOUNTER 2025-07-01 14:45 | Outpatient (CLI) | payer BC, SELFPAY ==
[2025-07-01 14:57] LABS: Abs Immature Grans 0.01 10^3/uL (0.0-0.06); HCT 36.4 % (36.0-46.0); HGB 12.6 g/dL (11.2-15.7); Immature Grans % 0.3 %; MCH 29.6 pg (27.0-33.0); MCHC 34.6 % (32.0-36.0); MCV 86 fL (80-95); MPV 10.4 fL (8.0-11.0); RBC 4.25 10^6/uL (3.93-5.22); RDW 14.2 % (11.7-14.6); RDW-SD 43.6 fL; WBC 3.74 10^3/uL (4.4-10.8)
[2025-07-01 15:26] LABS: PTT Activated 28.3 sec (20.6-30.2)
[2025-07-01 16:22] LABS: Magnesium 1.7 mg/dL (1.6-2.6)
[2025-07-01 16:23] LABS: ALT 42 U/L (10-49); AST 46 U/L (<34); Albumin 4.1 g/dL (3.4-5.0); Alkaline Phosphatase 49 U/L (46-116); Anion Gap 9.5 mmol/L (3-11); BUN 13 mg/dL (9-23); Bilirubin, Total 1.40 mg/dL (0.2-1.2); CO2 24.5 mmol/L (20.0-31.0); Calcium 8.8 mg/dL (8.3-10.6); Chloride 106 mmol/L (98-107); Glucose 124 mg/dL (74-106); Potassium 3.9 mmol/L (3.5-5.1); Sodium 140 mmol/L (136-145); Total Protein 7.1 g/dL (5.7-8.2); Vitamin B12 1551 pg/mL (211-911)
[2025-07-01 16:24] LABS: Ferritin 44 ng/mL (7-271)
[2025-07-01 16:36] LABS: Iron 50 ug/dL (50-170); Total Iron Binding Capacity 327 ug/dL (250-425); Transferrin Sat 15 % (15-50)
[2025-07-01 16:43] LABS: Platelet Count 77 10^3/uL (130-400)
[2025-07-01 17:36] LABS: Vitamin D 25 Total 36 ng/mL (30-100)
[2025-07-05 01:24] LABS: Thiamine (Vitamin B1), WB 102 nmol/L (70-180)
== END 2025-07-01 14:46 | disposition home or self-care (01) ==
LOC: LBO 14:45
PROVIDERS: PCP Nurse Practitioner Family; Visit Provider Nurse Practitioner Family
DX: E66.9 Obesity, unspecified (principal); K74.60 Unspecified cirrhosis of liver; K30 Functional dyspepsia
CPT/HCPCS: 36415; 80053; 82306; 82105; 82607; 82728; 83540; 83550; 83735; 83970; 84425; 85025; 85730